=== PATIENT | female | born 1980 | race Caucasian/White ===

== ENCOUNTER → 2017-10-29 11:20 | Outpatient (CLI) | payer OTHER, SELFPAY | PROVIDERS: Family Provider Family Medicine; PCP Family Medicine; Visit Provider Obstetrics & Gynecology | DX: Z12.4 Encounter for screening for malignant neoplasm of cervix (principal) ==

== ENCOUNTER 2017-12-23 09:58 | Emergency (ER) | payer OTHER, SELFPAY ==
[2017-12-23 10:00] VITALS: BP 144/102; PULSE 115; RESP 17; TEMP 36.8; O2SAT 99; BMI 32.5
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
[2017-12-23] MEDS: Ibuprofen 600 MG Tablet PO (10:34)
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
[2017-12-23 11:41] VITALS: BP 129/84; PULSE 72; RESP 16; O2SAT 98
== END 2017-12-23 11:42 | disposition home or self-care (01) ==
PROVIDERS: Emergency Provider Emergency Medicine; Family Provider Family Medicine; PCP Family Medicine
DX: S16.1XXA Strain of muscle, fascia and tendon at neck level, initial encounter (principal); S80.02XA Contusion of left knee, initial encounter; Z72.0 Tobacco use; V57.0XXA Driver of pick-up truck or van injured in collision with fixed or stationary object in nontraffic accident, initial encounter; Y93.I9 Activity, other involving external motion; Y92.410 Unspecified street and highway as the place of occurrence of the external cause; Y99.8 Other external cause status
CPT/HCPCS: 73562; 99283

== ENCOUNTER → 2018-01-26 13:06 | Outpatient (CLI) | payer OTHER, SELFPAY ==
[2018-01-26 13:32] LABS: Erythrocyte Sedimentation Rate 17 mm/hr (0-20)
== END ==
PROVIDERS: Family Provider Family Medicine; PCP Family Medicine; Visit Provider Family Medicine
DX: R25.1 Tremor, unspecified (principal)
CPT/HCPCS: 83735; 85652

== ENCOUNTER 2018-03-25 17:52 | Emergency (ER) | payer OTHER, SELFPAY ==
[2018-03-25 17:53] VITALS: BP 143/91; PULSE 101; RESP 24; TEMP 36.7; O2SAT 100; BMI 33.6
--- NOTE | 2018-03-25 17:59 | EKG12_ITS ---
Test Reason : DIZZY/NEURO S/SX Blood Pressure : / mmHG Vent. Rate : 109 BPM Atrial Rate : 109 BPM P-R Int : 128 ms QRS Dur : 070 ms QT Int : 338 ms P-R-T Axes : 063 026 064 degrees QTc Int : 455 ms Sinus tachycardia Otherwise normal ECG Confirmed by NEREYDA OTERO ([id number]), design editor FARIDEH MOREL ([id number] on 03/29/2018 10:17:02 AM Referred By: ARIANA/CAT Confirmed By:NEREYDA OTERO
[2018-03-25 18:16] VITALS: BP 144/90; PULSE 106; RESP 18; O2SAT 99
[2018-03-25 18:22] VITALS: BP 146/101; PULSE 91; RESP 16; O2SAT 100
[2018-03-25 18:31] LABS: Bedside Glucose 93 mg/dL (70-110)
[2018-03-25 18:32] LABS: Absolute Lymphocyte Count 4.28 X10^3/ul (0.83-4.51); Absolute Neutrophil Count 4.2 X10^3/uL (2.0-7.7); Basophil# 0.02 X10^3/uL; Basophil% 0.2 % (0-1); Eosinophil# 0.11 X10^3/uL; Eosinophils% 1.2 % (0-5); Hematocrit 40.4 % (37-47); Hemoglobin 13.2 g/dl (12.0-15.0); Lymphocyte # 4.28 X10^3/ul (4.0); Lymphocyte % 45.4 % (19-41); Mean Corp Hgb Conc 32.7 g/gl (32-36); Mean Corpuscular Hgb 29.7 pg (27.0-32.0); Mean Corpuscular Volume 90.8 fL (81-99); Mean Platelet Vol. 9.3 fl (6.2-12.0); Monocyte# 0.79 X10^3/uL; Monocyte% 8.4 % (0-10); Neutrophil # 4.21 X10^3/uL (2.7-7.7); Neutrophil % 44.7 % (47-70); POSITIVE COUNT NO; POSITIVE DIFFERENTIAL NO; POSITIVE MORPHOLOGY NO; Platelet Count 415 K/mm3 (150-450); RBC Distribution Width CV 13.4 % (11.6-14.6); RBC Distribution Width SD 44.8 fl (35.1-43.9); Red Blood Count 4.45 M/mm3 (4.2-5.4); White Blood Count 9.4 K/mm3 (4.4-11.0)
[2018-03-25 18:42] LABS: International Normalized Ratio 0.9
[2018-03-25 18:45] LABS: Anion Gap 8 (5-15); BUN 11 mg/dL (7-18); BUN/Creat Ratio 15.6 RATIO (10-20); Calcium,Total 8.7 mg/dL (8.5-10.1); Chloride 109 mmol/L (98-107); EST Glomerular Filtration Rate 100 mL/min (>60); Est Glom Filt Rate - Afr Amer 121 mL/min (>60); Estimated Creatinine Clearance 84.65 ml/min; Glucose 90 mg/dL (74-106); Potassium 3.7 mmol/L (3.5-5.1); Sodium Level 139 mmol/L (136-145)
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
--- NOTE | 2018-03-25 18:58 | CT_ITS ---
Exam: CTA of the neck with contrast and 2-D reconstructions. HISTORY: Visual changes and diaphoresis. COMPARISON: None TECHNIQUE: Patient injected with 100 cc [id number]-370 IV. Axial images were followed with 2-D MIPS reconstructions reviewed at a separate workstation. FINDINGS: Normal appearance of the visualized aortic arch. Normal branching pattern of the great vessels. Common carotid arteries are normal for age. No significant calcified plaque of the carotid bulbs. No measurable stenosis at the carotid bulb or the origins of either ICA. Normal appearance of the cervical ICAs bilaterally to the base of the brain. Normal origin and appearance of the vertebral arteries. The left vertebral artery is dominant. Normal visualized basilar artery. Visualized soft tissues including the lung apices and visualized cervical spine show no gross acute abnormalities. CT/CTA Neck W/WO Contrast IMPRESSION: CTA of the neck vessels is normal for age. Electronically Signed: Anthony Banda MD at 20:12 EDT , Service support ,
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
--- NOTE | 2018-03-25 19:51 | ED.DCSUM_ITS ---
- ER Visit Summary Date of Service: 03/25/18 Chief Complaint: Ocular migraine History of Present Illness: The patient is a 37 F who states that when she woke this morning she had a pain in her right eye. She states she has a history of ocular migraines. She states that she saw the squiggly lines and occasionally around objects that were colorful in the eye. This made her vision blurry. She states is unusual for her to wake with the symptoms. She states usually she can take Motrin some Mountain Dew and lay in a dark room and it resolves this has not resolved. She did have an episode of vomiting when she came home from work early. The patient wears eyeglasses not had to have any adjustment of the prescription. History of vitamin D deficiency. She is a 1 pack a day smoker notes that she has been under more stress. She has pain on the right side of her neck going up towards her ear. The patient went to urgent care she was referred to the emergency department care. Physical Examination: Afebrile vital signs are stable Gen: Well-nourished well-developed Head: Normocephalic atraumatic Eyes: Perrl EOMI ENT: TMs clear no rhinorrhea moist mucous membranes Neck: Supple no lymphadenopathy no JVD nontender there are no carotid bruits. CVS: Regular rate rhythm no murmurs normal S1-S2 Respiratory: No distress clear to auscultation bilaterally chest nontender Abdomen: Soft nontender nondistended normal bowel sounds no masses Back: Nontender Extremity: Nontender no edema Skin: Normal color no rash Neuro: alert orientated ?3 CN II-XII intact normal strength sensation reflexes gait cerebellar Psych: Normal affect normal mood Test Results: Basic labs were negative. EKG sinus tachycardia at a rate of 109. Heart rate has come down into the 80s. CTA of the head and neck was negative for aneurysm or dissection. Emergency Department Course and Treatment: Patient was on oxygen for a period of time in her ED course. Upon reevaluation she states that her symptoms have resolved and she feels pretty good. She wonders if there is anything she can take prescription martin when she feels these headaches coming on. I am going to give her a trial of Maxalt. Follow-up with primary care return if worsening or concerns. Impression: 1. Ocular migraine This note was generated with [employer] dictation software. It may contain incorrect words, spelling, and punctuation that were not noted in review of the chart prior to signing ED Disposition - Plan for ED Patient: Disposition: Home or Assisted Living Chief Complaint: Neuro S/Sx Instructions: ED Headache Migraine Prescriptions: Rizatriptan Benzoate [Maxalt] 5 mg PO .X1 PRN #2 tab Referrals: Remington Duckworth MD [Primary Care Provider] - As Needed
[2018-03-25] MEDS: 0.9% Normal Saline 1,000 ML 50 ML IV (20:03)
[2018-03-25 20:21] VITALS: BP 146/82; PULSE 78; RESP 20
[2018-03-25 20:34] VITALS: BP 146/92; PULSE 75; RESP 14; O2SAT 96
== END 2018-03-25 20:35 | disposition home or self-care (01) ==
PROVIDERS: Emergency Provider Emergency Medicine; Family Provider Family Medicine; PCP Family Medicine
DX: G43.B0 Ophthalmoplegic migraine, not intractable (principal); F17.200 Nicotine dependence, unspecified, uncomplicated; E55.9 Vitamin D deficiency, unspecified
CPT/HCPCS: 70496; 70498; 71046; 80048; 82962; 85025; 85610; 85730; 93005; 99284; J7030; Q9967; A4216

== ENCOUNTER 2018-10-05 09:25 | Observation (INO) | payer OTHER, SELFPAY ==
[2018-10-05] VITALS (9 sets, daily range): BP systolic 121–145; BP diastolic 78–102; PULSE 66–102; RESP 14–18; TEMP 36.4–36.8; O2SAT 96–99; BMI 33.4; BMI 33.8; BMI 33.9
--- NOTE | 2018-10-05 09:37 | CT_ITS ---
STUDY: CT ABDOMEN AND PELVIS WITHOUT CONTRAST REASON FOR EXAM: Female, 38 years old. Mid abdominal pain, nausea, difficulty voiding. Prior appendectomy. RADIATION DOSAGE (If Supplied By Facility): CTDIvol = ( 14.30 ) mGy, DLP = ( 835.09 ) mGycm TECHNIQUE: Transaxial images were obtained from the dome of the diaphragm to the symphysis pubis without oral contrast, and without intravenous contrast. Sagittal and coronal images were reconstructed. Individualized dose optimization techniques were used for this CT. COMPARISON: CT abdomen and pelvis 05/16/2016 FINDINGS: Body wall soft tissues: No acute process. Osseous structures: No acute process. Inferior chest: No acute process. Hepatobiliary: Hepatomegaly, craniocaudal right liver 22 cm. No evidence of hepatic steatosis. Normal gallbladder and biliary tree. Tiny cystlike foci in the left liver, the largest measuring 6 mm, too small for definitive imaging characterization. Pancreas: No acute process. Spleen: Normal. Adrenal glands: Normal. Urogenital: Normal kidneys. Symmetric nephrograms. Normal collecting systems, ureters. There is mild circumferential thickening of the urinary bladder wall which may be associated with underdistention but there is slight stranding in the periserosal fat which may reflect the presence of occult cystitis/UTI. Correlate urinalysis. Unremarkable anteverted uterus. Small amount of right adnexal and cul-de-sac free fluid. Collapsing cannulated rim-enhancing cyst in the right ovary measuring 11 mm. Features suggest recent cyst rupture. Small follicle of the left ovary. Hyperdense cystlike focus along the posterior margin of the left ovary may represent a hemorrhagic cyst, measuring about 10 mm. Questionable tubular fluid-filled structure of the left adnexa. It is difficult to discern if this represents a loop of small bowel or dilated left fallopian tube. Follow-up pelvic and transvaginal ultrasound is recommended. Pelvic floor and sidewalls and retroperitoneum: No mass or adenopathy. Vasculature: No acute process. Stomach: No acute process. Small bowel and mesentery: No acute process. Large bowel: Appendectomy. Unremarkable large bowel and rectum. Free fluid or free air: No free air. Minimal pelvic free fluid as noted above. CT/Abdomen/Pelvis W IV Cont ONLY IMPRESSION: 1. Mild thickening of the wall the urinary bladder. Slight stranding in the periserosal fat along the anterior margin of the urinary bladder. These features may reflect underdistention, only a small amount of urine present. Correlate clinically for the possibility of occult UTI. 2. Small amount of right adnexal and pelvic free fluid associated with what appears to be a small collapsing cyst of the right ovary. Suspicious for recent cyst rupture. 3. Suspected hemorrhagic cyst of left ovary measuring about 10 mm. Questionable hydrosalpinx on the left. Ultrasound pelvic transabdominal and transvaginal is recommended. Electronically Signed: Vikas Gaspar MD at 12:56 EST Tel , Service support ,
[2018-10-05] MEDS: 0.9% Normal Saline 1,000 ML 1000 ML IV (10:46)
[2018-10-05] MEDS: fentaNYL 100 MCG/2 ML Ampul 50 MCG IV ×3 (10:47→13:34)
[2018-10-05] MEDS: Ondansetron 4 MG/2 ML Vial IV (10:48)
[2018-10-05 10:54] LABS: Bacteria 0 SEEN /hpf (None Seen); Mucous, Urine 0 SEEN /hpf (<or=2+); Red Blood Cells-Urine 0 SEEN /hpf (0-5); White Blood Cells 0 SEEN /hpf (0-5)
[2018-10-05 10:55] LABS: Absolute Lymphocyte Count 2.16 X10^3/ul (0.83-4.51); Absolute Neutrophil Count 6.2 X10^3/uL (2.0-7.7); Basophil# 0.01 X10^3/uL; Basophil% 0.1 % (0-1); Eosinophil# 0.06 X10^3/uL; Eosinophils% 0.6 % (0-5); Hematocrit 42.7 % (37-47); Hemoglobin 14.1 g/dl (12.0-15.0); Lymphocyte # 2.16 X10^3/ul (4.0); Lymphocyte % 22.7 % (19-41); Mean Corpuscular Hgb 29.3 pg (27.0-32.0); Mean Corpuscular Volume 88.8 fL (81-99); Mean Platelet Vol. 9.4 fl (6.2-12.0); Monocyte# 1.03 X10^3/uL; Monocyte% 10.8 % (0-10); Neutrophil # 6.21 X10^3/uL (2.7-7.7); Neutrophil % 65.5 % (47-70); Platelet Count 425 K/mm3 (150-450); RBC Distribution Width CV 13.6 % (11.6-14.6); Red Blood Count 4.81 M/mm3 (4.2-5.4); White Blood Count 9.5 K/mm3 (4.4-11.0)
[2018-10-05 10:56] LABS: POSITIVE COUNT NO; POSITIVE DIFFERENTIAL NO; POSITIVE MORPHOLOGY NO
[2018-10-05 10:59] LABS: Internal QC Validated? YES +Cl - CLEAR BKGD; Pregnancy, Urine Negative Negative
[2018-10-05 11:01] LABS: Color, Urine Yellow (Yellow); Glucose, Dipstick Normal (Normal); Ketone-Dipstick Negative (Negative); Leukocyte Esterase-Dipstick Negative /ul (Negative); Nitrite-Dipstick Negative (Negative); Occult Blood-Urine Negative /ul (Negative); Protein-Dipstick Negative (Negative); Urine Bilirubin Dipstick Negative (Negative); Urine Clarity Sl. Cloudy (Clear); Urine Urobilinogen Normal (Normal)
[2018-10-05 11:02] LABS: Squamous Epithelial Cells - UA 0-5 SEEN /hpf (5-10)
[2018-10-05 11:12] LABS: ALB/GLOB Ratio 1.1 RATIO (0.9-2.4); AST(SGOT) 23 U/L (15-37); Alanine Aminotransfer ALT/SGPT 47 U/L (13-56); Albumin, Serum 3.9 g/dL (3.2-5.0); Alkaline Phosphatase 79 U/L (45-117); Anion Gap 9 (5-15); BUN 7 mg/dL (7-18); BUN/Creat Ratio 11.9 RATIO (10-20); Calcium,Total 8.7 mg/dL (8.5-10.1); Chloride 107 mmol/L (98-107); Creatinine, Serum 0.59 mg/dL (0.55-1.02); EST Glomerular Filtration Rate 123 mL/min (>60); Est Glom Filt Rate - Afr Amer 149 mL/min (>60); Estimated Creatinine Clearance 99.47 ml/min; Globulin 3.4 g/dL (2.2-4.2); Glucose 109 mg/dL (74-106); Lipase 66 U/L (73-393); Potassium 3.8 mmol/L (3.5-5.1); Protein, Total 7.3 g/dL (6.4-8.2); Sodium Level 139 mmol/L (136-145)
--- NOTE | 2018-10-05 13:34 | ED.RN ---
DR LUCY OWEN
--- NOTE | 2018-10-05 13:45 | NURSING ---
MED SURG INTRACTABLE ABD PAIN STEPHANIE
--- NOTE | 2018-10-05 13:51 | ED.VISSUMM ---
- ER Visit Summary Date of Service: 10/05/18 Chief Complaint: Abdominal pain History of Present Illness: The patient is a 38 F with abdominal pain starting yesterday. It feels sharp and it starts in the epigastric region and radiates to the right upper quadrant. It is 10 out of 10. She has had some nausea but no other symptoms. She never had this pain before. Nothing seems to make it better or worse. Denies fever or jaundice. 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 Physical Examination: Afebrile and vital signs unremarkable except for heart rate of 102. Appears very uncomfortable. Heart regular. Lungs clear. Abdomen is tender diffusely, including her lower abdomen. No guarding or rebound. CVA is nontender. Skin appears normal. Test Results: CBC normal. Metabolic panel and lipase unremarkable. Urinalysis normal. testing negative. Although the patient initially complained of upper abdominal pain and right upper quadrant pain, she was tender all over, and so a CT was ordered. This showed a thickened bladder as well as pelvic fluid. She has a right ovarian cyst and hydrosalpinx. Ultrasound was recommended. Emergency Department Course and Treatment: Patient received Zofran, fluids, and fentanyl. She had minimal improvement of her pain. She did require 2 additional doses of fentanyl. She is tearful and appears very uncomfortable. Her workup and vital signs were reassuring. But the patient is having intractable pain, requiring multiple rounds of IV fentanyl. Her CT showed findings as above. Ultrasound was not available today. Patient will not be able to go home because of her intractable pain. I spoke with Dr. Jaimes as the patient will likely need admission either way. She said that the ultrasound could be done as an inpatient. She advised checking GC and Chlamydia testing. I ordered the urine testing. The patient denies any discharge or symptoms. Plan was discussed with the patient. She will be admitted for pain control and further specialty care. Treatment Plan: As above Disposition: Admission Impression: 1. Intractable abdominal pain This note was generated with [employer] dictation software. It may contain incorrect words, spelling, and punctuation that were not noted in review of the chart prior to signing ED Disposition - Plan for ED Patient: Chief Complaint: Abd Pain Referrals: Remington Duckworth MD [Primary Care Provider] -
--- NOTE | 2018-10-05 13:55 | ED.DCSUM_ITS ---
- ER Visit Summary Date of Service: 10/05/18 Chief Complaint: Abdominal pain History of Present Illness: The patient is a 38 F with abdominal pain starting yesterday. It feels sharp and it starts in the epigastric region and radiates to the right upper quadrant. It is 10 out of 10. She has had some nausea but no other symptoms. She never had this pain before. Nothing seems to make it better or worse. Denies fever or jaundice. Denies urinary and [employer]ENT symptoms. Physical Examination: Afebrile and vital signs unremarkable except for heart rate of 102. Appears very uncomfortable. Heart regular. Lungs clear. Abdomen is tender diffusely, including her lower abdomen. No guarding or rebound. CVA is nontender. Skin appears normal. Test Results: CBC normal. Metabolic panel and lipase unremarkable. Urinalysis normal. testing negative. Although the patient initially complained of upper abdominal pain and right upper quadrant pain, she was tender all over, and so a CT was ordered. This showed a thickened bladder as well as pelvic fluid. She has a right ovarian cyst and hydrosalpinx. Ultrasound was recommended. Emergency Department Course and Treatment: Patient received Zofran, fluids, and fentanyl. She had minimal improvement of her pain. She did require 2 additional doses of fentanyl. She is tearful and appears very uncomfortable. Her workup and vital signs were reassuring. But the patient is having intractable pain, requiring multiple rounds of IV fentanyl. Her CT showed findings as above. Ultrasound was not available today. Patient will not be able to go home because of her intractable pain. I spoke with Dr. Jaimes as the patient will likely need admission either way. She said that the ultrasound could be done as an inpatient. She advised checking GC and Chlamydia testing. I ordered the urine testing. The patient denies any discharge or symptoms. Plan was discussed with the patient. She will be admitted for pain control and further specialty care. Treatment Plan: As above Disposition: Admission Impression: 1. Intractable abdominal pain This note was generated with [employer] dictation software. It may contain incorrect words, spelling, and punctuation that were not noted in review of the chart prior to signing ED Disposition - Plan for ED Patient: Chief Complaint: Abd Pain Referrals: Remington Duckworth MD [Primary Care Provider] -
[2018-10-05 15:40] LABS: Chlamydia Trachomatis by PCR Negative (Negative); Neisserai gonorrhoeae by PCR Negative (Negative); Probe Check PASS; Sample Adequacy Control PASS; Specimen Processing Control PASS
[2018-10-05] MEDS: 0.9% Normal Saline 1,000 ML 100 ML IV (15:47)
[2018-10-05] MEDS: HYDROmorphone 1 MG/ML Syringe IV (15:47)
[2018-10-05] MEDS: Ketorolac 30 MG/ML Syringe IV (15:48)
[2018-10-05] MEDS: Magnesium Hydroxide 30 ML UDC PO (16:08)
--- NOTE | 2018-10-05 17:33 | PCM.HPOB.BLA ---
History and Physical Date of Admission: 10/05/18 - abdominal pain HISTORY OF PRESENT ILLNESS: On 10/05/2018, Sarina Guerra, a 38 year old female 3 0 0 0 3, presented to the emergency department with CC of abdominal pain starting yesterday, described as sharp . It starts in the epigastric region, radiates to the right upper quadrant, then all across the abdomen down to the pelvis. It was initially 10/10 on the pain scale. She states had some nausea. No diarrhea, fever, chills. She has not had a bowel movement since Sat (3 d ago) and not passing flatus. She is now burping. Denies anything like this in the past. No hx of stomach problems or reflux. She denies taking NSAIDs. Nothing but pain med just given seems to make it better. She is concerned about the CT report of her bladder. -- abdominal pain which began yesterday, but maybe off and on starting a few weeks ago. Sarina claims it has been present continuous. It occurs cramping. It is located in the RUQ, and epigastrium radiating to lower abdomen, pelvis. Sarina characterizes the quality of the abdominal pain as cramping and sharp. Severity is initially 10/10. Now much better controlled after pain med given. It is aggravated by nothing and relieved by medication. An associated sign and symptom is nausea. Last BM 3 d ago. Sarina received Zofran, fluids, and three doses of fentanyl in the emergency department. CT of pelvis and abdomen: -- There is mild circumferential thickening of the urinary bladder wall which may be associated with underdistention but there is slight stranding in the periserosal fat which may reflect the presence of occult cystitis/UTI. Correlate urinalysis. UA NEGATIVE. -- Unremarkable anteverted uterus. Small amount of right adnexal and cul-de-sac free fluid. Collapsing cannulated rim-enhancing cyst R ovary 11 mm Features suggest recent cyst rupture. L ovary, 10 mm follicle. Questionable tubular fluid-filled structure of the left adnexa.-- a loop of small bowel or dilated L fallopian tube. WILL GET PELVIC SONO. LABS: CBC, metabolic profile, Lipase WNL. UA normal test neg. GC and chlamydia sent on urine. ALLERGIES: Dimetapp, Itching, Latex, Rash, metals, Rash, Codeine, Itching, non-specific MEDICATIONS HISTORY: Current medications prescribed by our practice are: 1.None. REVIEW OF SYSTEMS: GENERAL - Denies fever, or chills SKIN - Denies skin changes EYES - Denies visual changes EARS - Denies difficulty hearing NOSE - Denies nasal congestion or bleeding MOUTH - Denies sore throat or difficulty swallowing NECK - Denies pain or swelling RESPIRATORY - Denies shortness of breath or wheezing CARDIOVASCULAR - Denies palpitations or chest pain GASTROINTESTINAL - denies any history of reflux. No diarrhea. States no BM x 3 d. No flatus, just starting to burp again Everything on abdomen feels swollen, distended. GENITOURINARY - Denies dysuria, frequency of urination, incontinence of urine MUSCULOSKELETAL - Denies joint or muscle pain NEUROLOGICAL - Denies localized numbness or weakness PSYCHIATRIC - Denies depression or anxiety ENDOCRINE - Denies heat or cold intolerance, weight loss or gain HEMATO-IMMUNOLOGIC - Denies excessive bleeding with cuts PAST HISTORY: Breast/Ovarian/Colon Cancers - Denies Infections - Chicken pox and HPV Illnesses - IBS Accidents - no injuries of consequence History of Abnormal PAPS - first noted 2-5 years ago-- YES SURGICAL HISTORY: 1. 05/09/1997 T and A 2. 11/21/[address] Hunter 3. 09/11/2003 Laparoscopy Navdeep Ansari M.D. MENSTRUAL HISTORY: LMP Known?- Yes, Regularity - Irregular, LMP - 09/25/18, Age Onset Menarche - 14 PAST PREGNANCIES: Total Pregnancies - 3; Full Term Pregnancies - 3; Premature - 0; Abortions, Induced - 0; Abortions, Spontaneous - 0; Ectopics - 0; Multiple Births - 0; Living Children - 3 FAMILY HISTORY: Father - FH: Diabetes mellitus type 1; Father - Ischemic heart disease; Mother - Ischemic heart disease; MaternalGrandparent - Ischemic heart disease; SOCIAL HISTORY: Alcohol Use - drinks occasionally Smoking - 1/2 pack/day--advised to quit Diet - balanced Diet Lifestyle - moderate stress lifestyle and Exercise - active and walking Seat Belt Use - always Employer - [employer] Job Description - [employer] Illicit Drug Use - denies use of street drugs Sexual Activity - Residence - owns a home and lives with Place of - [place] Hours Worked - 40 hours per week Spouse-Sig Other Name - Marcio Varun Mari Spouse-Sig Other Occupation - Manuela Kaminski Spouse-Sig Other Phone No - [phone] Children Name(s) - ' DIANE, '04 Ankita (marcelina)Keila-JMW,[id number] Control - Vasectomy PHYSICAL EXAMINATION BP- 145/98 while in pain Pulse- 66 Resp- 18 99% pulse ox on RA Weight- 0.00 lbs Height- 0.00 inch CONSTITUTIONAL - NAD, well nourished, and well developed HEENT - Normocephalic, PERRLA, EOMI NECK - no nuchal rigidity and no tracheal deviation BREAST - deferred ABDOMEN - minimally tender throughout No voluntary guarding. No rebound. Nonsurgical abdomen NEUROLOGICAL - Cranial nerves II-XII grossly intact PSYCHIATRIC - A and O to time, place, person, mood and affect ASSESSMENT: 1. Upper Abdominal Pain, Unspecified 2. Nausea PLAN BY DIAGNOSIS: 1. Nausea, Upper Abdominal Pain and Unspecified Reviewed history. labs and CT findings. Advised pt not likely her pain is due to her minimal fluid in pelvis, or small follicles noted. ? L hydrosalpinx vs loop of bowel. Abdomen nonsurgical. suspect bowel etiology with pain in epigastrium to RUQ and radiation to pelvis over entire abdomen. Possibly related to constipation. LFTs wnl. CT no abdominal pathology. Admit for IV fluids, pain control Antiemetics. MOM, Richi for bowel function. Plan for pelvic sono on 10/06/18.
[2018-10-05] MEDS: Famotidine 20 MG Tablet PO (21:53)
[2018-10-05] MEDS: Metoclopramide 10 MG/2 ML Vial 5 MG IV (21:53)
[2018-10-05] MEDS: 0.9% NaCl Peripheral Flush Adult/Peds IV (21:54)
[2018-10-06] MEDS: 0.9% Normal Saline 1,000 ML 100 ML IV (01:24)
[2018-10-06 01:38] VITALS: BP 114/72; PULSE 75; RESP 16; TEMP 36.8; O2SAT 98
[2018-10-06] MEDS: Metoclopramide 10 MG/2 ML Vial 5 MG IV ×2 (05:26→14:13)
[2018-10-06] MEDS: Ketorolac 30 MG/ML Syringe IV (05:26)
[2018-10-06] MEDS: 0.9% NaCl Peripheral Flush Adult/Peds IV ×2 (05:26→11:31)
[2018-10-06 06:22] LABS: Absolute Lymphocyte Count 3.26 X10^3/ul (0.83-4.51); Absolute Neutrophil Count 3.6 X10^3/uL (2.0-7.7); Basophil# 0.02 X10^3/uL; Basophil% 0.3 % (0-1); Eosinophil# 0.07 X10^3/uL; Eosinophils% 0.9 % (0-5); Hematocrit 35.4 % (37-47); Hemoglobin 11.5 g/dl (12.0-15.0); Lymphocyte # 3.26 X10^3/ul (4.0); Lymphocyte % 42.2 % (19-41); Mean Corp Hgb Conc 32.5 g/gl (32-36); Mean Corpuscular Hgb 29.4 pg (27.0-32.0); Mean Corpuscular Volume 90.5 fL (81-99); Mean Platelet Vol. 9.1 fl (6.2-12.0); Monocyte% 10.3 % (0-10); Neutrophil # 3.57 X10^3/uL (2.7-7.7); Neutrophil % 46.2 % (47-70); Platelet Count 340 K/mm3 (150-450); RBC Distribution Width CV 13.9 % (11.6-14.6); RBC Distribution Width SD 45.7 fl (35.1-43.9); Red Blood Count 3.91 M/mm3 (4.2-5.4); White Blood Count 7.7 K/mm3 (4.4-11.0)
[2018-10-06 06:26] LABS: POSITIVE COUNT NO; POSITIVE DIFFERENTIAL NO; POSITIVE MORPHOLOGY NO
[2018-10-06 06:35] LABS: Anion Gap 9 (5-15); BUN 7 mg/dL (7-18); BUN/Creat Ratio 13.6 RATIO (10-20); Calcium,Total 7.7 mg/dL (8.5-10.1); Chloride 112 mmol/L (98-107); Creatinine, Serum 0.51 mg/dL (0.55-1.02); EST Glomerular Filtration Rate 144 mL/min (>60); Est Glom Filt Rate - Afr Amer 174 mL/min (>60); Estimated Creatinine Clearance 115.07 ml/min; Glucose 93 mg/dL (74-106); Sodium Level 143 mmol/L (136-145)
--- NOTE | 2018-10-06 08:00 | US_ITS ---
STUDY: ULTRASOUND OF THE FEMALE PELVIS - COMPLETE CLINICAL: Female, 38 years old. Severe mid to right pelvic pain x 3 days. LMP: September 23, 2018. TECHNIQUE: Transabdominal and Transvaginal. Despite a distended urinary bladder, detail was limited on initial scanning, so endovaginal imaging was also employed. TECHNICAL QUALITY: Adequate. COMPARISON: CT abdomen and pelvis October 05, 2018. FINDINGS: The uterus is anteverted and is in a midline position. The uterus measures 8.9 x 4.9 x 4.1 cm. Normal uterine cervix. The endometrium measures 7 mm in thickness, and is hyperechoic. There is no demonstrated endometrial mass. There is no demonstrated myometrial mass. I.U.D. - The patient does not have an I.U.D. The right ovary is visualized. The right ovary measures 3.3 x 3.7 x 1.7 cm. There are a few small follicles of the right ovary without a dominant cyst. 2.2 x 2.2 x 1.3 cm cystic structure with a thick irregular rim suggests an involuting dominant follicle. There is normal arterial and normal venous vascularity. The left ovary is visualized. The left ovary measures 2.0 x 1.7 x 1.7 cm. There are several small follicles of the left ovary without a dominant cyst. A 3 mm calcification is seen at the margin of the ovary. There is no visualized left adnexal mass or complex lesion. There is normal arterial and normal venous vascularity. There is small volume free fluid in the cul-de-sac. Polycystic ovary disease: No. US/Pelvic (Non ) IMPRESSION: 1. Probable involuting 2.2 cm dominant follicle in the right ovary. 2. Unremarkable left ovary. There is no demonstrated hydrosalpinx or pyosalpinx. 3. Normal anteverted uterus with normal endometrial thickness. Electronically Signed: Diego Howard MD at 9:50 EST , Service support ,
--- NOTE | 2018-10-06 08:35 | PCM.PROGNOTE ---
Subjective: Abdominal pain feels much better today. Still feeling bloated, distended and overall tender, but no other Dilaudid or pain med needed. MOM last night No BM. Objective: Sitting up in bed, multiple visitors in room. - Physical Exam General: Alert, Oriented x3, Cooperative, No apparent distress HEENT: Atraumatic Neck: Supple Psych/Mental Status: Normal Affect Vital Signs Temp Pulse Resp BP Pulse Ox 98.3 F 75 16 114/72 98 10/06/18 01:38 10/06/18 01:38 10/06/18 01:38 10/06/18 01:38 10/06/18 01:38 Oxygen Delivery Method Room Air Weight: 81.3 kg Body Mass Index (BMI) 33.8 Finger Stick Blood Glucose 93 Intake and Output for Last 24 Hours 10/04/18 10/05/18 10/06/18 23:59 23:59 23:59 Intake Total 439 / 439 1195 / 1195 Output Total 700 / 700 Balance 439 / 439 495 / 495 Laboratory Tests Past 24 Hrs 10/05/18 10/05/18 10/05/18 10:40 10:40 10:50 WBC 9.5 RBC 4.81 Hgb 14.1 Hct 42.7 MCV 88.8 MCH 29.3 MCHC 33.0 RDW 13.6 RDW Differential 44.0 H Plt Count 425 MPV 9.4 Immature Gran % (Auto) 0.300 Neut % (Auto) 65.5 Lymph % (Auto) 22.7 [place] % (Auto) 10.8 H Eos % (Auto) 0.6 Baso % (Auto) 0.1 Absolute Neuts (auto) 6.2 Absolute Lymphs (auto) 2.16 Total Counted Not Reportable Sodium 139 Potassium 3.8 Chloride 107 Carbon Dioxide 23.0 Anion Gap 9 BUN 7 Creatinine 0.59 Estim Creat Clear Calc 99.47 Est GFR (MDRD) Af Amer 149 Est GFR (MDRD) Non-Af 123 BUN/Creatinine Ratio 11.9 Glucose 109 H Calcium 8.7 Total Bilirubin 0.40 AST 23 ALT 47 Alkaline Phosphatase 79 Total Protein 7.3 Albumin 3.9 Globulin 3.4 Albumin/Globulin Ratio 1.1 Lipase 66 L Urine Color Urine Clarity Urine pH Ur Specific [place] Urine Protein Urine Glucose (UA) Urine Ketones Urine Occult Blood Urine Nitrite Urine Bilirubin Urine Urobilinogen Ur Leukocyte Esterase Urine RBC Urine WBC Ur Squamous Epith Cells Urine Bacteria Urine Mucus Urine Test Negative Chlam trachomat DNA PCR N.gonorrhoeae DNA (PCR) 10/05/18 10/05/18 10/06/18 10:50 10:50 05:44 WBC 7.7 RBC 3.91 L Hgb 11.5 L Hct 35.4 L MCV 90.5 MCH 29.4 MCHC 32.5 RDW 13.9 RDW Differential 45.7 H Plt Count 340 MPV 9.1 Immature Gran % (Auto) 0.100 Neut % (Auto) 46.2 L Lymph % (Auto) 42.2 H [place] % (Auto) 10.3 H Eos % (Auto) 0.9 Baso % (Auto) 0.3 Absolute Neuts (auto) 3.6 Absolute Lymphs (auto) 3.26 Total Counted Not Reportable Sodium Potassium Chloride Carbon Dioxide Anion Gap BUN Creatinine Estim Creat Clear Calc Est GFR (MDRD) Af Amer Est GFR (MDRD) Non-Af BUN/Creatinine Ratio Glucose Calcium Total Bilirubin AST ALT Alkaline Phosphatase Total Protein Albumin Globulin Albumin/Globulin Ratio Lipase Urine Color Yellow Urine Clarity Sl. Cloudy Urine pH 6.0 Ur Specific [place] 1.010 Urine Protein Negative Urine Glucose (UA) Normal Urine Ketones Negative Urine Occult Blood Negative Urine Nitrite Negative Urine Bilirubin Negative Urine Urobilinogen Normal Ur Leukocyte Esterase Negative Urine RBC 0 SEEN Urine WBC 0 SEEN Ur Squamous Epith Cells 0-5 SEEN Urine Bacteria 0 SEEN Urine Mucus 0 SEEN Urine Test Chlam trachomat DNA PCR Negative N.gonorrhoeae DNA (PCR) Negative 10/06/18 05:44 WBC RBC Hgb Hct MCV MCH MCHC RDW RDW Differential Plt Count MPV Immature Gran % (Auto) Neut % (Auto) Lymph % (Auto) [place] % (Auto) Eos % (Auto) Baso % (Auto) Absolute Neuts (auto) Absolute Lymphs (auto) Total Counted Sodium 143 Potassium 4.0 Chloride 112 H Carbon Dioxide 22.0 Anion Gap 9 BUN 7 Creatinine 0.51 L Estim Creat Clear Calc 115.07 Est GFR (MDRD) Af Amer 174 Est GFR (MDRD) Non-Af 144 BUN/Creatinine Ratio 13.6 Glucose 93 Calcium 7.7 L Total Bilirubin AST ALT Alkaline Phosphatase Total Protein Albumin Globulin Albumin/Globulin Ratio Lipase Urine Color Urine Clarity Urine pH Ur Specific [place] Urine Protein Urine Glucose (UA) Urine Ketones Urine Occult Blood Urine Nitrite Urine Bilirubin Urine Urobilinogen Ur Leukocyte Esterase Urine RBC Urine WBC Ur Squamous Epith Cells Urine Bacteria Urine Mucus Urine Test Chlam trachomat DNA PCR N.gonorrhoeae DNA (PCR) Medical Necessity - Tobacco Use Smoking Status: Current every day smoker Tobacco Use: Cigarettes Assessment/Plan Nausea, Upper Abdominal Pain and Unspecified Sx improved. No further narcotic pain meds needed. WBC wnl, but inc lymphocytes and monocytes and advised of this. Likely pain due to enteritis. Diet as tolerated. Constipation. MOM bid, Reglan for bowel function. Possible hydrosalpinx Plan for pelvic sono today prior to dischg Likely dischg home later today.
[2018-10-06] MEDS: Famotidine 20 MG Tablet PO (08:57)
[2018-10-06] MEDS: Magnesium Hydroxide 30 ML UDC PO (08:58)
[2018-10-06 09:00] VITALS: BP 123/76; PULSE 75; RESP 16; TEMP 36.8; O2SAT 98
--- NOTE | 2018-10-06 10:17 | PCM.DC ---
- Discharge Diagnoses Current Active Problems: abdominal pain, Nausea. Constipation You will use the following diet at home:: No restrictions Discharge Activity: Return to Normal Activity - as you are comfortable, and symptoms improve. Return to work on:: 10/07/18 May resume sexual activity in: No Restrictions - when comfortable Weight Bearing Status: Weight bearing as tolerated Call your doctor if you observe: Fever of 101 or Higher, Inability to have a bowel movement, Uncontrolled pain Allergies/Adverse Reactions: Allergies brompheniramine [From Dimetapp (brompheniramine-PPA)] Allergy (Verified 03/25/18 17:56) HALLUCINATIONS codeine Allergy (Verified 03/25/18 17:56) Itching latex Allergy (Verified 03/25/18 17:56) Hives phenylpropanolamine [From Dimetapp (brompheniramine-PPA)] Allergy (Verified 03/25/18 17:56) HALLUCINATIONS METALS Allergy (Uncoded 03/25/18 17:56) Itching Medications to take at Discharge Ergocalciferol [Vitamin D] 50,000 unit PO TU 03/25/18 Acetaminophen [Tylenol] 500 - 1,000 mg PO Q8H PRN PRN tablet 10/06/18 Docusate Sodium [Colace] 100 mg PO BID #30 capsule 10/06/18 Famotidine [Pepcid] 20 mg PO BID #30 tablet 10/06/18 Mag Hydrox/Al Hydrox/Simeth [Mylanta II] 30 ml PO Q6H PRN PRN udc 10/06/18 Ondansetron HCl [Zofran] 4 mg PO Q6H PRN PRN #10 tablet 10/06/18 The following prescriptions were given: Ondansetron HCl [Zofran] 4 mg PO Q6H PRN PRN #10 tablet PRN Reason: Nausea Docusate Sodium [Colace] 100 mg PO BID #30 capsule Famotidine [Pepcid] 20 mg PO BID #30 tablet Primary Care Physician: Remington Duckworth MD [Primary Care Provider] - Test Results: Test results from this visit will be discussed in further detail at your follow-up appointment, if applicable. Please Follow Up With: Navdeep Ansari MD - [phone] When: as scheduled, or within two weeks if you do not have an appointment.
--- NOTE | 2018-10-06 10:22 | DCINST_ITS ---
- Discharge Diagnoses Current Active Problems: abdominal pain, Nausea. Constipation You will use the following diet at home:: No restrictions Discharge Activity: Return to Normal Activity - as you are comfortable, and symptoms improve. Return to work on:: 10/07/18 May resume sexual activity in: No Restrictions - when comfortable Weight Bearing Status: Weight bearing as tolerated Call your doctor if you observe: Fever of 101 or Higher, Inability to have a bowel movement, Uncontrolled pain Allergies/Adverse Reactions: Allergies brompheniramine [From Dimetapp (brompheniramine-PPA)] Allergy (Verified 03/25/18 17:56) HALLUCINATIONS codeine Allergy (Verified 03/25/18 17:56) Itching latex Allergy (Verified 03/25/18 17:56) Hives phenylpropanolamine [From Dimetapp (brompheniramine-PPA)] Allergy (Verified 03/25/18 17:56) HALLUCINATIONS METALS Allergy (Uncoded 03/25/18 17:56) Itching Medications to take at Discharge Ergocalciferol [Vitamin D] 50,000 unit PO TU 03/25/18 Acetaminophen [Tylenol] 500 - 1,000 mg PO Q8H PRN PRN tablet 10/06/18 Docusate Sodium [Colace] 100 mg PO BID #30 capsule 10/06/18 Famotidine [Pepcid] 20 mg PO BID #30 tablet 10/06/18 Mag Hydrox/Al Hydrox/Simeth [Mylanta II] 30 ml PO Q6H PRN PRN udc 10/06/18 Ondansetron HCl [Zofran] 4 mg PO Q6H PRN PRN #10 tablet 10/06/18 The following prescriptions were given: Ondansetron HCl [Zofran] 4 mg PO Q6H PRN PRN #10 tablet PRN Reason: Nausea Docusate Sodium [Colace] 100 mg PO BID #30 capsule Famotidine [Pepcid] 20 mg PO BID #30 tablet Primary Care Physician: Remington Duckworth MD [Primary Care Provider] - Test Results: Test results from this visit will be discussed in further detail at your follow- up appointment, if applicable. Please Follow Up With: Navdeep Ansari MD - [phone] When: as scheduled, or within two weeks if you do not have an appointment.
--- NOTE | 2018-10-06 14:03 | PCM.PN.BLA ---
Progress Note less abdominal pain. + flatus. States foul smelling diarrhea now Ultrasound to be done at approx 3 pm Still a little painful. Asking for small amt of pain med prn for home A/P: Abdominal pain. Likely enteritis, now with diarrhea. SONO today for pelvis. Then home. Dischg meds and instructions given. Will call with sono results. No need to take any stool softener, advised not to take with diarrhea.
--- NOTE | 2018-10-06 14:33 | CHAPLAIN ---
Type of Pastoral Visit _x__ Initial Visit ___ Follow-up Visit ___ On-call Visit ___ General Patient Visit ___ Spiritual Assessment ___ Family Conference ___ Bereavement ___ Rapid Response ___ Code Blue ___ Other (describe below) Pastoral Care Referral From _x__ Patient ___ Family ___ Nurse ___ Physician ___ Space Systems Operations Craftsman ___ Harbormaster ___ Other (describe below) Sacrament/Intervention _x__ Active listening ___ Anointing ___ Mormon ___ Bereavement ___ Communion ___ Olga exploration ___ ___ Life review _x__ Prayer ___ Reconciliation ___ Sacrament of Sick _x__ Supportive presence ___ Wedding ___ Other (describe below) Pastoral Comments
--- NOTE | 2018-10-06 15:19 | US_ITS ---
STUDY: ULTRASOUND OF THE FEMALE PELVIS - COMPLETE CLINICAL: Female, 38 years old. Severe mid to right pelvic pain x 3 days. LMP: September 23, 2018. TECHNIQUE: Transabdominal and Transvaginal. Despite a distended urinary bladder, detail was limited on initial scanning, so endovaginal imaging was also employed. TECHNICAL QUALITY: Adequate. COMPARISON: CT abdomen and pelvis October 05, 2018. FINDINGS: The uterus is anteverted and is in a midline position. The uterus measures 8.9 x 4.9 x 4.1 cm. Normal uterine cervix. The endometrium measures 7 mm in thickness, and is hyperechoic. There is no demonstrated endometrial mass. There is no demonstrated myometrial mass. I.U.D. - The patient does not have an I.U.D. The right ovary is visualized. The right ovary measures 3.3 x 3.7 x 1.7 cm. There are a few small follicles of the right ovary without a dominant cyst. 2.2 x 2.2 x 1.3 cm cystic structure with a thick irregular rim suggests an involuting dominant follicle. There is normal arterial and normal venous vascularity. The left ovary is visualized. The left ovary measures 2.0 x 1.7 x 1.7 cm. There are several small follicles of the left ovary without a dominant cyst. A 3 mm calcification is seen at the margin of the ovary. There is no visualized left adnexal mass or complex lesion. There is normal arterial and normal venous vascularity. There is small volume free fluid in the cul-de-sac. Polycystic ovary disease: No. US/Transvaginal Non- IMPRESSION: 1. Probable involuting 2.2 cm dominant follicle in the right ovary. 2. Unremarkable left ovary. There is no demonstrated hydrosalpinx or pyosalpinx. 3. Normal anteverted uterus with normal endometrial thickness. Electronically Signed: Diego Howard MD at 9:50 EST , Service support ,
[2018-10-06 16:05] VITALS: BP 130/88; PULSE 79; RESP 18; TEMP 36.6; O2SAT 100
--- NOTE | 2018-10-07 14:25 | PCM.DC.SUM ---
Discharge Date and Diagnosis Date of Admission: 10/05/18 - abdominal pain Date of Discharge: 10/06/18 Hospital Course and Treatment Summary of Care Provided: The patient is a 38 year old Female with abdominal pain (epigastric to RUQ and radiating through entire abdomen), also ? finding on CT of either a hydrosalpinx or loop of bowel Admitted for observation overnight due to abdominal pain unrelieved by fentanyl (short relief only). CBC wnl. AFEB during her hospital stay. she required a dose of Dilaudid 1 mg and one dose of Toradol for pain relief in hospital. Diarrhea developed during her hospital observation. Pelvic sono done later afternoon and she was sent home in stable condition no longer requiring pain medication. DX enteritis. Abdominal pain due to enteritis, resolving - Physical Exam Vital Signs Temp Pulse Resp BP Pulse Ox 97.9 F 79 18 130/88 H 100 10/06/18 16:05 10/06/18 16:05 10/06/18 16:05 10/06/18 16:05 10/06/18 16:05 Oxygen Delivery Method Room Air Weight: 81.3 kg Body Mass Index (BMI) 33.8 Finger Stick Blood Glucose 93 Intake and Output for Last 24 Hours 10/05/18 10/06/18 10/07/18 23:59 23:59 23:59 Intake Total 439 / 439 2066 / 2066 Output Total 1100 / 1100 Balance 439 / 439 966 / 966 Discharge Activity: Return to Normal Activity - as you are comfortable, and symptoms improve. Return to work on:: 10/07/18 May resume sexual activity in: No Restrictions - when comfortable Weight Bearing Status: Weight bearing as tolerated Call your doctor if you observe: Fever of 101 or Higher, Inability to have a bowel movement, Uncontrolled pain Home Medications: Medications to take at Discharge Ergocalciferol [Vitamin D] 50,000 unit PO TU 03/25/18 Acetaminophen [Tylenol] 500 - 1,000 mg PO Q8H PRN PRN tablet 10/06/18 Docusate Sodium [Colace] 100 mg PO BID #30 capsule 10/06/18 Famotidine [Pepcid] 20 mg PO BID #30 tablet 10/06/18 Mag Hydrox/Al Hydrox/Simeth [Mylanta II] 30 ml PO Q6H PRN PRN udc 10/06/18 Ondansetron HCl [Zofran] 4 mg PO Q6H PRN PRN #10 tablet 10/06/18 Following Prescrptions Were Given to Patient: Ondansetron HCl [Zofran] 4 mg PO Q6H PRN PRN #10 tablet PRN Reason: Nausea Docusate Sodium [Colace] 100 mg PO BID #30 capsule Famotidine [Pepcid] 20 mg PO BID #30 tablet Primary Care Physician: Remington Duckworth MD [Primary Care Provider] - Please Follow Up With: Navdeep Ansari MD - [phone] When: as scheduled, or within two weeks if you do not have an appointment. Medical Necessity - Tobacco Use Smoking Status: Current every day smoker Tobacco Use: Cigarettes Meaningful Use Info Meaningful Use Diagnoses (Choose all that apply): None applicable
== END 2018-10-06 16:19 | disposition home or self-care (01) ==
LOC: ED 10:17 → MS3 14:56
PROVIDERS: Admitting Provider Obstetrics & Gynecology; Emergency Provider Emergency Medicine; Family Provider Family Medicine; PCP Family Medicine; Visit Provider Obstetrics & Gynecology
DX: K52.9 Noninfective gastroenteritis and colitis, unspecified (principal); F17.210 Nicotine dependence, cigarettes, uncomplicated; N83.202 Unspecified ovarian cyst, left side
CPT/HCPCS: 36415; 74177; 76830; 76856; 80048; 80053; 81001; 81025; 83690; 85025; 87491; 87591; 93976; 96361; 96374; 96375; 96376; 99218; 99282; 99406; J7030; Q9967; A4216; G0378; J2405

== ENCOUNTER → 2018-12-30 15:59 | Outpatient (CLI) | payer OTHER, SELFPAY ==
[2018-10-05 15:18] VITALS: BMI 33.8
--- NOTE | 2018-12-30 | CER_PTH ---
PATIENT: PRAVEEN VIERA LOC: [facility] U#:[id number] AGE/SX: 45/F ROOM: RE12/30/[address]: Dr. Navdeep Ansari MD : 1980 BED: DIS: SPEC #: [id number] RECD: 12/30/18 15:57 STATUS: RAFAEL BANKSYue #: [id number] CHIN: 12/30/18 00:[address]: Navdeep Ansari DEPT: SURGICAL PATHOLOGY RECD BY: Rogerio Burgess ENTERED: 12/31/18 09:05 SP TYPE: CERV OTHR DR: Dr. Lux Duckworth MD Tissues: Uterine cervix, NOS Procedures: Surgery Specimen Level IV HEADER OPERATION: ECC PRE-OP DIAGNOSIS: N93.0 TISSUE SUBMITTED: ECC MICROSCOPIC DIAGNOSIS ECC: Fragments of benign endocervical mucosa with acute and chronic inflammation, blood and mucous. Negative for dysplasia. SJ:jamila 01/03/19 COMMENT Clinical correlation and appropriate follow up are necessary. MICROSCOPIC DESCRIPTION Slides are reviewed. GROSS DESCRIPTION Received in fixative is one container labeled with the patient's name and designated ECC. The specimen consists of multiple fragments of hemorrhagic mucoid tissue that in aggregate measure 2 x 2 x 0.2 cm. The specimen is totally submitted in one cassette. / SJ:rg 12/31/18 TC:5 CPT: 29927
[2018-12-30 18:35] LABS: Chlamydia Trachomatis by PCR Negative (Negative); Neisserai gonorrhoeae by PCR Negative (Negative); Probe Check PASS; Sample Adequacy Control PASS; Specimen Processing Control PASS
[2019-01-04 13:05] LABS: HPV Reflexed? NOT INDICATED
== END ==
PROVIDERS: Family Provider Family Medicine; PCP Family Medicine; Referring Provider Obstetrics & Gynecology; Visit Provider Obstetrics & Gynecology
DX: N93.0 Postcoital and contact bleeding (principal); Z12.4 Encounter for screening for malignant neoplasm of cervix
CPT/HCPCS: 87491; 87591; 87624; 88175; 88305; G0145

== ENCOUNTER → 2020-12-06 09:51 | Outpatient (CLI) | payer OTHER, SELFPAY ==
[2018-10-05 15:18] VITALS: BMI 33.8
[2020-12-06 12:10] LABS: Absolute Lymphocyte Count 2.46 X10^3/uL (0.83-4.51); Absolute Neutrophil Count 4.4 X10^3/uL (2.0-7.7); Basophil# 0.03 X10^3/uL; Basophil% 0.4 % (0-1); Eosinophils% 1.3 % (0-5); Hemoglobin 13.4 g/dL (12.0-15.0); Lymphocyte # 2.46 X10^3/ul (4.0); Lymphocyte % 32.6 % (19-41); Mean Corp Hgb Conc 31.9 g/dL (32-36); Mean Corpuscular Hgb 29.3 pg (27.0-32.0); Mean Corpuscular Volume 91.7 fL (81-99); Mean Platelet Vol. 10.2 fl (6.2-12.0); Monocyte# 0.56 X10^3/uL; Monocyte% 7.4 % (0-10); NRBC Flagged by Analyzer 0 % (0-5); Neutrophil # 4.38 X10^3/uL (2.7-7.7); Platelet Count 464 K/mm3 (150-450); RBC Distribution Width CV 13.1 % (11.6-14.6); Red Blood Count 4.58 M/mm3 (4.2-5.4); White Blood Count 7.6 K/mm3 (4.4-11.0)
[2020-12-06 12:39] LABS: Anion Gap 6 (5-15); BUN 13 mg/dL (7-18); BUN/Creat Ratio 18.9 RATIO (10-20); Chloride 109 mmol/L (98-107); Creatinine, Serum 0.69 mg/dL (0.55-1.02); EST Glomerular Filtration Rate 101 mL/min (>60); Est Glom Filt Rate - Afr Amer 123 mL/min (>60); Free T3 2.6 pg/mL (2.18-3.98); Glucose 96 mg/dL (74-106); Potassium 3.8 mmol/L (3.5-5.1); Sodium Level 141 mmol/L (136-145)
== END ==
PROVIDERS: PCP Family Medicine; Referring Provider Family Medicine; Visit Provider Family Medicine
DX: R63.5 Abnormal weight gain (principal)
CPT/HCPCS: 36415; 80048; 84443; 84481; 85025

== ENCOUNTER → 2020-12-18 10:09 | Outpatient (CLI) | payer OTHER, SELFPAY ==
[2018-10-05 15:18] VITALS: BMI 33.8
[2020-12-21 14:04] LABS: HPV Reflexed? NOT INDICATED
== END ==
PROVIDERS: PCP Family Medicine; Visit Provider Obstetrics & Gynecology
DX: Z12.4 Encounter for screening for malignant neoplasm of cervix (principal)
CPT/HCPCS: 88175; G0145

== ENCOUNTER → 2021-01-01 17:00 | Outpatient (CLI) | payer OTHER, SELFPAY ==
[2018-10-05 15:18] VITALS: BMI 33.8
--- NOTE | 2021-01-01 16:38 | BI_ITS ---
MAMMOGRAPHY - BILATERAL SCREENING REASON FOR EXAM: Female, 40 years old. Routine annual screening examination. PERTINENT HISTORY: Non-contributory. TECHNIQUE: Digital bilateral breast darío (3D mammographic acquisition) in the CC and MLO projections. 2-D mediolateral oblique (MLO) and craniocaudad (CC) views of both breasts were obtained. CAD: Full Field Digital Mammography with Computer Added Detection was performed. COMPARISON: None. Baseline examination. FINDINGS: Breast Composition: The breasts are heterogeneously dense, which may obscure small masses. There are no dominant masses or suspicious calcifications. No other significant abnormalities are identified. BI/SCRN MAMM (CAD)W/DARÍO BILAT IMPRESSION: Negative screening mammogram. Yearly followup mammogram recommended. (A) ASSESSMENT CATEGORY: BIRADS Category 1: Negative. A letter regarding these results will be sent to the patient by the facility within 30 days. Approximately 10% of breast cancers are not detected by mammography. A normal mammogram should not delay biopsy of a clinically suspicious abnormality. [id number] Electronically Signed: Macario Mejia MD at 8:22 EDT , Service support ,
== END ==
PROVIDERS: PCP Family Medicine; Referring Provider Obstetrics & Gynecology; Visit Provider Obstetrics & Gynecology
DX: Z12.31 Encounter for screening mammogram for malignant neoplasm of breast (principal)
CPT/HCPCS: 77063; 77067

== ENCOUNTER → 2022-11-12 | Outpatient (CLI) | payer OTHER, SELFPAY ==
[2022-11-12 14:59] LABS: Hematocrit 41.8 % (37-47); Hemoglobin 13.3 g/dL (12.0-15.0); Mean Corp Hgb Conc 31.8 g/dL (32-36); Mean Corpuscular Hgb 29.1 pg (27.0-32.0); Mean Corpuscular Volume 91.5 fL (81-99); Mean Platelet Vol. 10.2 fl (6.2-12.0); Platelet Count 407 K/mm3 (150-450); RBC Distribution Width CV 13.4 % (11.6-14.6); RBC Distribution Width SD 45.3 fl (35.1-43.9); Red Blood Count 4.57 M/mm3 (4.2-5.4); White Blood Count 9.9 K/mm3 (4.4-11.0)
[2022-11-12 15:21] LABS: ALB/GLOB Ratio 1.1 RATIO (0.9-2.4); AST(SGOT) 10 U/L (15-37); Alanine Aminotransfer ALT/SGPT 20 U/L (13-56); Albumin, Serum 3.8 g/dL (3.2-5.0); Alkaline Phosphatase 58 U/L (45-117); Anion Gap 7 (5-15); BUN 11 mg/dL (7-18); BUN/Creat Ratio 15.1 RATIO (10-20); Calcium,Total 8.7 mg/dL (8.5-10.1); Chloride 108 mmol/L (98-107); Creatinine, Serum 0.73 mg/dL (0.55-1.02); EST Glomerular Filtration Rate 94 mL/min (>60); Est Glom Filt Rate - Afr Amer 114 mL/min (>60); Free T3 2.7 pg/mL (2.18-3.98); Globulin 3.4 g/dL (2.2-4.2); Glucose 80 mg/dL (74-106); Magnesium 2.1 mg/dL (1.6-2.6); Potassium 3.7 mmol/L (3.5-5.1); Protein, Total 7.2 g/dL (6.4-8.2); Sodium Level 139 mmol/L (136-145); T4 Free Direct 1.02 ng/dL (0.76-1.46); Thyroid Stim Hormone (TSH) 1.69 uIU/mL (0.358-3.74)
[2022-11-12 15:25] LABS: Vitamin B12 303 pg/mL (211-911); Vitamin D,25 Hydroxy 14.7 ng/mL
== END | disposition home or self-care (01) ==
LOC: MFPLAB 12:28
PROVIDERS: PCP Family Medicine; Referring Provider Family Medicine; Visit Provider Family Medicine
DX: R53.83 Other fatigue (principal); E04.1 Nontoxic single thyroid nodule
CPT/HCPCS: 36415; 80053; 82306; 82533; 82607; 83735; 84439; 84443; 84481; 85027

== ENCOUNTER → 2022-11-21 | Outpatient (CLI) | payer OTHER, SELFPAY ==
--- NOTE | 2022-11-21 08:50 | US_ITS ---
STUDY: THYROID ULTRASOUND REASON FOR EXAM: Female, 42 years old. thyroid nodule FELT BY DOCTOR-RT PALP LUMP TECHNIQUE: Ultrasound evaluation of the thyroid was performed with real-time and static stacy-scale imaging. COMPARISON: None. FINDINGS: RIGHT LOBE: The right lobe of the thyroid gland measures 5.9 x 2.3 x 1.8 cm. There is a homogeneous echotexture. There are 3 nodules of the right thyroid lobe. The largest nodule measures 2.6 x 2.2 x 1.8 cm. This nodule is mixed cystic and solid, hypoechoic, dtbbq-ruax-dkev, smoothly marginated and contains no echogenic foci. TI-RADS points: 3. TI-RADS category: TR3. This nodule is mildly suspicious. Recommend FNA evaluation. LEFT LOBE: The left lobe of the thyroid gland measures 4.9 x 1.8 x 1.4 cm. There is a homogeneous echotexture. 5 mm hypoechoic solid nodule. This nodule is solid or almost completely solid, very hypoechoic, [id number]-cllo-uygr, smoothly marginated and contains no echogenic foci. TI-RADS points: 5. TI-RADS category: TR4. This nodule is moderately suspicious but no FNA or follow-up is necessary given the small size of this nodule. ISTHMUS: The isthmus measures 2.0 mm. The regional lymph nodes are normal. US/Thyroid IMPRESSION: Thyroid nodules. FNA sampling of dominant right thyroid lobe nodule recommended. Electronically Signed: Juan Hsieh (Brooks), at 18:49 EST ,
== END | disposition home or self-care (01) ==
LOC: US 08:50
PROVIDERS: PCP Family Medicine; Referring Provider Family Medicine; Visit Provider Family Medicine
DX: E04.1 Nontoxic single thyroid nodule (principal)
CPT/HCPCS: 76536

== ENCOUNTER → 2022-12-05 | Outpatient (CLI) | payer OTHER, SELFPAY ==
--- NOTE | 2022-12-05 09:15 | FLU_PTH ---
PATIENT: PRAVEEN VIERA LOC: [facility] U#:[id number] AGE/SX: 42/F ROOM: RE12/05/[address]: Dr. Hector Brown MD : 1980 BED: DIS: 12/05/2022 SPEC #: [id number] RECD: 12/05/22 11:34 STATUS: RAFAEL JAYRO #: [id number] CHIN: 12/05/22 09:[address]: Hector Brown DEPT: CYTOLOGY RECD BY: Patricia Martínez ENTERED: 12/05/22 12:09 SP TYPE: Fluid OTHR DR: Dr. Lux Duckworth MD Tissues: A - Thyroid gland, NOS B - Thyroid gland, NOS Procedures: Special Stain Group II Surgery Specimen Level IV Cytospin Fluid Cytology Other HEADER OPERATION: Fine needle aspiration, right inferior thyroid nodule PRE-OP DIAGNOSIS: Multiple thyroid nodules TISSUE SUBMITTED: A ? Right inferior thyroid nodule fluid, B - Right inferior thyroid nodule x4 slides DIAGNOSIS CYTOLOGY A. Right inferior thyroid nodule fluid, fine needle aspiration (cytospin and cell block): Consistent with benign follicular/colloid nodule ([place] Category II). Adequate for evaluation. See comment. B. Right inferior thyroid nodule, fine needle aspiration (smears): Consistent with benign follicular/colloid nodule ([place] Category II). Adequate for evaluation. See comment. SJ:jamila 12/08/2022 COMMENT A & B. Smears are cellular, the findings may represent adenomatoid nodule. Correlation with clinical, radiologic findings and appropriate follow up are necessary. CYTOLOGY STUDY Slides are reviewed. CYTOLOGY GROSS A - Received is 30 ml of red cloudy fluid labeled with the patient's name and and designated per the requisition as right inferior thyroid nodule. Submitted for cytology preparation including cell block. B - Received are four smears labeled with the patient's name and designated per the requisition as right inferior thyroid nodule. Submitted for staining. / jamila 12/05/2022 TC:5 CPT: 04740 x2, 15518
== END | disposition home or self-care (01) ==
LOC: LABSPEC 11:47
PROVIDERS: PCP Family Medicine; Referring Provider Surgery; Visit Provider Surgery
DX: E04.2 Nontoxic multinodular goiter (principal)
CPT/HCPCS: 88108; 88161; 88305; 88313

== ENCOUNTER → 2023-01-27 | Outpatient (CLI) | payer OTHER, SELFPAY ==
[2023-01-27 19:15] LABS: Vitamin B12 431 pg/mL (211-911); Vitamin D,25 Hydroxy 70.5 ng/mL
== END | disposition home or self-care (01) ==
LOC: MFPLAB 16:55
PROVIDERS: PCP Family Medicine; Visit Provider Family Medicine
DX: R79.89 Other specified abnormal findings of blood chemistry (principal); E53.8 Deficiency of other specified B group vitamins
CPT/HCPCS: 36415; 82306; 82607

== ENCOUNTER → 2023-04-14 | Outpatient (CLI) | payer OTHER, SELFPAY ==
--- NOTE | 2023-04-14 08:41 | BI_ITS ---
MAMMOGRAPHY - BILATERAL SCREENING REASON FOR EXAM: Female, 42 years old. Routine annual screening examination. PERTINENT HISTORY: Non-contributory. TECHNIQUE: Digital bilateral breast darío (3D mammographic acquisition) in the CC and MLO projections. 2-D mediolateral oblique (MLO) and craniocaudad (CC) views of both breasts were obtained. CAD: Full Field Digital Mammography with Computer Added Detection was performed. COMPARISON: Comparison is made with prior study January 01, 2021. FINDINGS: Breast Composition: The breasts are heterogeneously dense, which may obscure small masses. There are no dominant masses or suspicious calcifications. No other significant abnormalities are identified. There has been no significant change since the prior study. BI/SCRN MAMM (CAD)W/DARÍO BILAT IMPRESSION: Stable bilateral screening mammogram. Yearly follow-up mammogram recommended. (A) ASSESSMENT CATEGORY: BIRADS Category 1: Negative. A letter regarding these results will be sent to the patient by the facility within 30 days. Approximately 10% of breast cancers are not detected by mammography. A normal mammogram should not delay biopsy of a clinically suspicious abnormality. [id number] Electronically Signed: Macario Mejia MD at 10:01 EDT ,
== END | disposition home or self-care (01) ==
LOC: OPBI 08:40
PROVIDERS: PCP Family Medicine; Referring Provider Obstetrics & Gynecology; Visit Provider Obstetrics & Gynecology
DX: Z12.31 Encounter for screening mammogram for malignant neoplasm of breast (principal)
CPT/HCPCS: 77063; 77067

== ENCOUNTER → 2023-07-28 | Outpatient (CLI) | payer OTHER, SELFPAY ==
[2023-07-28 17:56] LABS: Absolute Lymphocyte Count 3.26 X10^3/uL (0.83-4.51); Absolute Neutrophil Count 5.7 X10^3/uL (2.0-7.7); Basophil# 0.04 X10^3/uL; Basophil% 0.4 % (0-1); Eosinophil# 0.12 X10^3/uL; Eosinophils% 1.2 % (0-5); Hematocrit 41.8 % (37-47); Hemoglobin 13.2 g/dL (12.0-15.0); Lymphocyte # 3.26 X10^3/ul (0.83-4.51); Lymphocyte % 32.3 % (19-41); Mean Corp Hgb Conc 31.6 g/dL (32-36); Mean Corpuscular Hgb 29.5 pg (27.0-32.0); Mean Corpuscular Volume 93.5 fL (81-99); Mean Platelet Vol. 9.8 fl (6.2-12.0); Monocyte% 8.9 % (0-10); NRBC Flagged by Analyzer 0 % (0-5); Neutrophil # 5.73 X10^3/uL (2.7-7.7); Neutrophil % 56.9 % (47-70); Platelet Count 469 K/mm3 (150-450); RBC Distribution Width CV 13.3 % (11.6-14.6); RBC Distribution Width SD 45.6 fl (35.1-43.9); Red Blood Count 4.47 M/mm3 (4.2-5.4); White Blood Count 10.1 K/mm3 (4.4-11.0)
[2023-07-28 19:44] LABS: AST(SGOT) 11 U/L (15-37); Alanine Aminotransfer ALT/SGPT 22 U/L (13-56); Albumin, Serum 3.7 g/dL (3.2-5.0); Alkaline Phosphatase 69 U/L (45-117); Anion Gap 3 (5-15); BUN 15 mg/dL (7-18); BUN/Creat Ratio 21.6 RATIO (10-20); Calcium,Total 8.6 mg/dL (8.5-10.1); Chloride 110 mmol/L (98-107); EST Glomerular Filtration Rate 99 mL/min (>60); Est Glom Filt Rate - Afr Amer 119 mL/min (>60); Estradiol 40.4 pg/mL; Follicle Stimulating Hormone 5.2 mIU/mL; Free T3 2.7 pg/mL (2.18-3.98); Globulin 3.6 g/dL (2.2-4.2); Glucose 102 mg/dL (74-106); Luteinizing Hormone 4.8 mIU/mL; Potassium 3.7 mmol/L (3.5-5.1); Protein, Total 7.3 g/dL (6.4-8.2); Sodium Level 140 mmol/L (136-145); T4 Free Direct 0.94 ng/dL (0.76-1.46); Thyroid Stim Hormone (TSH) 1.23 uIU/mL (0.358-3.74)
== END | disposition home or self-care (01) ==
LOC: MFPLAB 14:22
PROVIDERS: PCP Family Medicine; Visit Provider Family Medicine
DX: E04.1 Nontoxic single thyroid nodule (principal)
CPT/HCPCS: 36415; 80053; 82670; 83001; 83002; 84439; 84443; 84481; 85025

== ENCOUNTER → 2023-08-01 | Outpatient (CLI) | payer OTHER, SELFPAY ==
--- NOTE | 2023-08-01 10:45 | US_ITS ---
INDICATION: aub EXAMINATION: Ultrasound US Pelvis Non OB Complete With Transvaginal Imaging TECHNIQUE: Transabdominal and transvaginal pelvic ultrasound was performed. Grayscale, spectral waveform, and color flow Doppler evaluation of the adnexa. COMPARISON: FINDINGS: UTERUS: Anteverted. The uterus measures 8 x 5 x 4 cm. There is no uterine mass. The endometrial stripe measures 1.227 in AP diameter which is within normal limits. RIGHT OVARY: 2.8 x 2.1 x 1.6 cm simple cyst 1.5 cm in diameter.. Non-enlarged, normal echogenicity. There is normal arterial inflow and venous outflow present in the right ovary. LEFT OVARY: 2.0 x 1.6 x 1.5 cm.. Non-enlarged, normal echogenicity. There is normal arterial inflow and venous outflow present in the left ovary. FREE FLUID: None. US/Pelvic w/ Transvaginal IMPRESSION: Simple cyst right ovary 1.5 x 1.43 x 1.42 cm. Electronically Signed: Kvng Garcia MD at 12:09 EDT ,
== END | disposition home or self-care (01) ==
LOC: US 10:25
PROVIDERS: PCP Family Medicine; Referring Provider Family Medicine; Visit Provider Family Medicine
DX: N92.6 Irregular menstruation, unspecified (principal)
CPT/HCPCS: 76830; 76856

== ENCOUNTER → 2023-08-05 | Outpatient (CLI) | payer OTHER, SELFPAY ==
[2023-08-12 11:50] LABS: Chlamydia By Nucleic Acid AMP Negative (Negative); Gonococcus By Nucleic Acid AMP Negative (Negative); Trich. Vag By Nucleic Acid AMP Negative (Negative)
[2023-08-12 11:51] LABS: HPV Reflexed? YES, CHARGE PATIENT
[2023-08-12 11:52] LABS: HPV HIGH RISK 16/18 Negative
== END | disposition home or self-care (01) ==
LOC: LABSPEC 12:43
PROVIDERS: PCP Family Medicine; Visit Provider Nurse Practitioner Family
DX: N93.9 Abnormal uterine and vaginal bleeding, unspecified (principal); R10.9 Unspecified abdominal pain
CPT/HCPCS: 87491; 87591; 87624; 88175; G0145

== ENCOUNTER → 2024-04-15 | Outpatient (CLI) | payer OTHER, SELFPAY ==
--- NOTE | 2024-04-15 08:11 | BI_ITS ---
MAMMOGRAPHY - BILATERAL SCREENING REASON FOR EXAM: Female, 43 years old. Routine annual screening examination. PERTINENT HISTORY: Non-contributory. TECHNIQUE: Digital bilateral breast darío (3D mammographic acquisition) in the CC and MLO projections. 2-D mediolateral oblique (MLO) and craniocaudad (CC) views of both breasts were obtained. CAD: Full Field Digital Mammography with Computer Added Detection was performed. COMPARISON: Comparison is made with prior study dated April 14, 2023 and January 01, 2021. FINDINGS: Breast Composition: The breasts are heterogeneously dense, which may obscure small masses. There are no dominant masses or suspicious calcifications. No other significant abnormalities are identified. There has been no significant change since the prior study. BI/SCRN MAMM (CAD)W/DARÍO BILAT IMPRESSION: Stable bilateral screening mammogram. Yearly follow-up mammogram recommended. (A) ASSESSMENT CATEGORY: BIRADS Category 1: Negative. A letter regarding these results will be sent to the patient by the facility within 30 days. Approximately 10% of breast cancers are not detected by mammography. A normal mammogram should not delay biopsy of a clinically suspicious abnormality. [id number] Electronically Signed: Macario Mejia MD at 9:16 EDT ,
== END | disposition home or self-care (01) ==
LOC: OPBI 08:09
PROVIDERS: PCP Family Medicine; Referring Provider Specialist; Visit Provider Specialist
DX: Z12.31 Encounter for screening mammogram for malignant neoplasm of breast (principal)
CPT/HCPCS: 77063; 77067

== ENCOUNTER → 2025-07-20 | Outpatient (CLI) | payer OTHER, SELFPAY ==
--- NOTE | 2025-07-20 | LES_PTH ---
PATIENT: PRAVEEN VIERA LOC: [facility] U#:[id number] AGE/SX: 45/F ROOM: RE07/20/[address]: Dr. Lux Duckworth MD : 1980 BED: DIS: 07/20/2025 SPEC #: [id number] RECD: 07/20/25 15:13 STATUS: RAFAEL REQ #: [id number] CHIN: 07/20/25 00:[address]: Lux Duckworth DEPT: SURGICAL PATHOLOGY RECD BY: Trace Valencia Tissues: A - Skin of back, NOS Procedures: Immunohistochemical Stains Surgery Specimen Level IV IHC Stain ADDITIONAL Comments: [facility] from [facility]. Specified that location is actually "right upper back". Office is re-writing order to specify as "right". 08/21/2025 at 09:49am. - MR HEADER OPERATION: Left upper back PRE-OP DIAGNOSIS: Atypical nevus TISSUE SUBMITTED: A- Left upper back biopsy MICROSCOPIC DIAGNOSIS A. Skin, left upper back, "atypical nevus", punch biopsy: * Atypical compound melanocytic neoplasm - see note and Comment. * IHC for Melan-A, HMB45, PRAME support the diagnosis. 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 However, because of the degree of architectural disorder and presence of severe cytologic atypia, melanoma in situ arising in a nevus cannot be entirely excluded. Re-excision with an appropriate margin of uninvolved skin is recommended. It is important to note that features present prior to regression taking place cannot be evaluated. COMMENT The slides/images were reviewed in intradepartmental consultation by Dr Kathy Meyers (dermatopathology division, [facility]). MICROSCOPIC DESCRIPTION Slides are reviewed. All matched controls reacted appropriately. These tests were developed and their performance characteristics determined by [facility]. They may not have been cleared or approved by the U.S. Food and Drug Administration. The FDA has determined that such clearance or approval is not necessary. The above immunohistochemical markers and/or special stains have been reviewed by the Pathologist. All controls show appropriate reactivity. (PRAME, HMB45) All immunohistochemistry, in situ hybridization, and histochemical tests were developed by and are performed at the [facility], [address] [place] [address]. All Immunofluorescent (IF) tests were developed by and are performed at the [facility], [address] [place] [address]. All tests reported here, except those addressing HER2 overexpression as a predictive marker, have not been cleared by or approved by the US Food and Drug Administration (FDA). The laboratory is regulated under CLIA as qualified to perform high-complexity testing. The tests are used for clinical purposes. They should not be regarded as investigational or for research. GROSS DESCRIPTION A. Received in formalin labeled with the patient's name and date of . Designated as "Left upper back " is a 0.6 x 0.6 cm mcgee to light brown skin punch, excised to maximum depth of 0.3 cm. The resection margin is inked orange. Centrally on the epidermal surface is a 0.2 x 0.2 cm dark brown lesion located 0.2 cm from the peripheral edge. The specimen is bisected and entirely submitted in 1 cassette. MD 07/20/2025 CPT:02278,91089,34404t5
--- OUTSIDE RECORDS SUMMARY | 2025-07-20 14:25 | XMS RPT_ITS | CCD ---
Author Organization [facility] Care Team Providers Care Patch Driller Name Role Phone Dr. Remington Duckworth Primary Care Provider Dr. Remington Duckworth Referring Provider Dr. Hector Brown Attending Provider Kane Duckworth MD Primary Care Provider NIMA GALINDO DO Attending NIMA Kaur DO Attending Kane Ruiz MD Primary Care Provider KANE DUCKWORTH Primary Care Unavailjuanis e KANE DUCKWORTH Primary Care Unavailabl e KANE DUCKWORTH Primary Care Unavailabl e Donita, Kane Primary Care Unavailable Devorah Rivas Attending Kane José Attending Unavailable Kane Duckworth Primary Care Unavailable Kane Duckworth Referring Unavailable Kane Duckworth Primary Care Unavailable Kane Duckworth Attending Unavailable Kane Ducwkorth Primary Care Unavailable Nima Galindo Referring Unavailable Nima Galindo Attending Unavailable Allergies Allergy Classification Reported Allergen(s) Allergy Type Date of Onset Reaction(s) Facility (8 sources) Brompheniramine Drug Allergy HALLUCINATIONS [facility] (13 sources) Codeine; Translations: [CODEINE] Drug Allergy [facility] (13 sources) Latex; Translations: [LATEX] Allergy to substance Rash [facility] (8 sources) Phenylpropanolamine Drug Allergy HALLUCINATIONS [facility] (9 sources) Environmental Allergies: Uncoded; Translations: [Environmental Allergies: Uncoded] Allergy to substance 10-19-2 022 Itching [facility] (5 sources) Brompheniramine / Phenylpropanolamine; Translations: [DIMETAPP DM (PPA)] Drug Allergy 015 Mental Status Change [facility] Work Phone: (5 sources) nickel; Translations: [NICKEL] Drug Allergy 015 Rash [facility] Work Phone: (1 source) Brompheniramine Drug Allergy 018 [facility] (1 source) Codeine Drug Allergy 018 [facility] (1 source) Latex Drug allergy (disorder) 018 [facility] (1 source) Phenylpropanolamine Drug Allergy 018 [facility] Medications Current Medications Medication Drug Class(es) Dates Sig (Normalized) Sig (Original) acetaminophen 500 mg oral tablet (8 sources) Start: 10-06-2018 take 500-1000 mg by mouth every eight hours as needed Acetaminophen Active 500 - 1000 MG PO EVERY 8 HOURS NEEDED October 06, 2018 12:00am aluminum hydroxide 80 mg/ml / magnesium hydroxide 80 mg/ml / simethicone 8 mg/ml oral suspension (8 sources) Start: 10-06-2018 take 1 mL by mouth every six hours as needed Alum-Mag Hydroxide-Simeth (Mag-Al Plus Extra Strength) 30 ML suspension Active 30 ML PO EVERY 6 HOURS NEEDED October 06, 2018 12:00am docusate sodium 100 mg oral capsule (8 sources) Start: 10-06-2018 take 1 capsule by mouth twice daily Docusate Sodium (Colace) 100 MG capsule Active 100 MG PO TWICE A DAY October 06, 2018 12:00am 1 po bid to prevent constipation. doxycycline hyclate 100 mg oral tablet (1 source) Tetracycline-class Drug Start: 03-08-2024 End: 03-15-2024 take 1 tablet by mouth twice daily doxycycline (VIBRA-TABS) 100 mg tablet Indications: Rhinosinusitis Take 1 tablet by mouth two times a day for 7 days. 14 tablet 0 03/08/2024 03/15/2024 Active ergocalciferol 1.25 mg oral capsule (8 sources) Provitamin D2 Compound Start: 03-25-2018 take 1 capsule by mouth once Ergocalciferol (Vitamin D2) (Vitamin D) 50,000 UNIT capsule Active 85603 UNIT PO March 24, 2018 11:00pm famotidine 20 mg oral tablet (8 sources) Histamine-2 Receptor Antagonist Start: 10-06-2018 take 20 mg by mouth twice daily Famotidine Active 20 MG PO TWICE A DAY October 06, 2018 12:00am fluconazole 150 mg oral tablet (1 source) Azole Antifungal Start: 05-22-2023 End: 05-23-2023 take 1 tablet by mouth once daily fluconazole (DIFLUCAN) 150 mg tablet Indications: Dysuria Take 1 tablet by mouth once daily for 1 day. 1 tablet 0 05/22/2023 05/23/2023 Active Comment on above: Take 1 tablet by edgar th once daily for 1 day. LEVONORGESTREL-ETHIN ESTRADIOL (SEASONALE CONTRACEPTIVE ORAL) (4 sources) LEVONORGESTREL-E THI N ESTRADIOL (SEASONALE CONTRACEPTIVE ORAL) Take by mouth. 0 Active Comment on above: Take by mouth. ondansetron 4 mg oral tablet (8 sources) Serotonin-3 Receptor Antagonist Start: 10-06-2018 take 1 tablet by mouth every six hours as needed Ondansetron Hcl (Zofran) 4 MG tablet Active 4 MG PO EVERY 6 HOURS NEEDED October 06, 2018 10:20am phenazopyridine hydrochloride 200 mg oral tablet (8 sources) Start: 05-13-2016 take 1 tablet by mouth every eight hours as needed phenazopyridine (PYRIDIUM) 200 mg tablet Take 1 tablet by mouth three times daily as needed. 6 tablet 0 05/22/2023 Active Comment on above: Take 1 tablet by edgar th three times daily as needed for Pain. Take 1 tablet by edgar th three times daily as needed. predniSONE 50 mg oral tablet (1 source) Start: 05-13-2024 End: 05-18-2024 take 1 tablet by mouth once daily predniSONE (DELTASONE) 50 mg Indications: Right ear pain Take 1 tablet by mouth once daily for 5 days. 5 tablet 0 05/13/2024 05/18/2024 Active sulfamethoxazole 800 mg / trimethoprim 160 mg oral tablet (2 sources) Dihydrofolate Reductase Inhibitor Antibacterial, Sulfonamide Antimicrobial Start: 05-22-2023 End: 05-27-2023 take 1 tablet by mouth twice daily sulfamethoxazole-tr imethoprim (BACTRIM DS) 800-160 mg per tablet Indications: Dysuria Take 1 tablet by mouth twice daily for 5 days. 10 tablet 0 05/22/2023 05/27/2023 Active Comment on above: Take 1 tablet by edgar th twice daily for 5 days. Completed/Discontinued Medications Medication Drug Class(es) Dates Sig (Normalized) Sig (Original) oxyCODONE hydrochloride 5 mg oral tablet (8 sources) Opioid Agonist Start: 10-06-2018 End: 10-07-2018 take 5 mg by mouth every six hours as needed Oxycodone Discontinued 5 MG PO EVERY 6 HOURS NEEDED 5 October 06, 2018 12:00am October 07, 2018 12:11am Problems Problem Classification Problem Date Documented Da te Episodic/Chronic Conditions associated with dizziness or vertigo (1 source) Dizziness; Translations: [Dizziness and giddiness] 05-13-2024 Episodic Genitourinary symptoms and ill-defined conditions (1 source) Dysuria; Translations: [Dysuria] 05-22-2023 Episodic Menstrual disorders (1 source) Irregular menstruation, unspecified; Translations: [Irregular menstruation, unspecified] Onset: 08-06-2023 Chronic Other ear and sense organ disorders (1 source) Otalgia, right ear; Translations: [Otalgia, unspecified] 05-13-2024 Episodic Other female genital disorders (1 source) Abnormal uterine and vaginal bleeding, unspecified; Translations: [Abnormal uterine and vaginal bleeding, unspecified] Onset: 08-11-2023 Chronic Other screening for suspected conditions (not mental disorders or infectious disease) (1 source) Encounter for screening mammogram for malignant neoplasm of breast; Translations: [Encounter for screening mammogram for malignant neoplasm of breast] Onset: 07-05-2024 Episodic Other upper respiratory infections (1 source) Chronic sinusitis, unspecified; Translations: [Unspecified sinusitis (chronic)] 03-08-2024 Chronic Thyroid disorders (9 sources) Thyroid nodule; Translations: [Nontoxic single thyroid nodule] Onset: 08-03-2023 12-05-2022 Chronic Results Test Name Value Interpretation Reference Range Facility CNOVon 05-13-2024 CNOV Office Visit ([facility]) PRAVEEN VIERA ([id number]) 1980 F Date Time Provider Department 05/13/24 6:45 PM BERNARD RODRIGEZ [facility] During your visit today, we recorded the following information about you: Temperature Pulse Respiration Blood pressure 98.4 degrees 90/minute 21/minute 118/78 Weight 86.6 kg Bernard Rodrigez, LIVERY CAR DRIVER.LEMON PICKER 05/13/2024 6:58 PM Signed This note was created using LensVectorriter. Subjective Praveen Viera is a 43 year old female. HPI Pt complains of right ear pain for the last two days. Denies any recent swimming or trauma to the ear. She does state that she has had several ear infections over the last several months. Patient also notes that she has had several episodes of dizziness today. She states that she got dizzy while driving but when she stopped and got some water symptoms resolved. She denies any current dizziness. Review of Systems Constitutional: Negative for fever. HENT: Positive for ear pain and sneezing. Negative for sore throat. Respiratory: Negative for cough. Neurological: Positive for dizziness. Objective BP 118/78 Pulse 90 Temp 36.9 ?C (98.4 ?F) Resp 21 Wt 86.6 kg (190 lb 14.7 oz) LMP 05/11/2023 (Exact Date) SpO2 98% Physical Exam Vitals and nursing note reviewed. Constitutional: General: She is not in acute distress. Appearance: Normal appearance. She is not ill-appearing. HENT: Head: Normocephalic. Right Ear: Tympanic membrane, ear canal and external ear normal. Left Ear: Tympanic membrane, ear canal and external ear normal. Mouth/Throat: Mouth: Mucous membranes are moist. Pharynx: No oropharyngeal exudate or posterior oropharyngeal erythema. Comments: No facial swelling or dental caries noted. Eyes: Conjunctiva/sclera: Conjunctivae normal. Cardiovascular: Rate and Rhythm: Normal rate and regular rhythm. Pulmonary: Effort: Pulmonary effort is normal. Breath sounds: Normal breath sounds. Musculoskeletal: General: Normal range of motion. Cervical back: Normal range of motion. Skin: General: Skin is warm and dry. Neurological: General: No focal deficit present. Mental Status: She is alert. Psychiatric: Mood and Affect: Mood normal. Behavior: Behavior normal. Assessment and Plan ASSESSMENT/PLAN: 1. Right ear pain - ICD9: 388.70, ICD10: H92.01 There are no obvious signs of otitis media. Patient will use her home Flonase and Zyrtec. She was given a 5-day course of prednisone. She was instructed to follow-up if symptoms do not improve over the next 2 days. - PREDNISONE 50 MG TABLET 2. Dizziness: I reviewed with patient my concerns of peripheral versus central vertigo. I discussed with her that in express care I was not able to evaluate for symptomatic dizziness. Patient states that after having drank water on her previous episode symptoms resolved and she is feeling better now. I reviewed with her that if she did develop recurrent dizziness she should go to the nearest ER for more emergent evaluation. Patient understands and is agreeable. Bernard Rodrigez APRN.LEMON PICKER Allergies As of Date: 05/13/2024 Noted Allergy Reaction CODEINE 02/28/2015 2 - Rash DIMETAPP DM (PPA) 02/28/2015 1 - Mental Status Change LATEX 02/28/2015 2 - Rash Comments: open lesions NICKEL 02/28/2015 2 - Rash Date Reviewed: 05/13/2024 Reviewed by: Bernard Rodrigez APRN.LEMON PICKER - Fully Assessed Reason for Visit: Ear Problem [38] Cmt: Right ear issues, muffled hearing x 2 days Primary Visit Diagnosis:Right ear pain [H92.01] Other Visit Diagnosis:Dizziness [R42] Order(s):predniSONE (DELTASONE) 50 mgTake 1 tablet by mouth once daily for 5 days.Disp: 5 tabletRfl: 0 Prescriptions as of 05/13/2024 - predniSONE (DELTASONE) 50 mg Take 1 tablet by mouth once daily for 5 days. - phenazopyridine (PYRIDIUM) 200 mg tablet Take 1 tablet by mouth three times daily as needed. - LEVONORGESTREL-ETHIN ESTRADIOL (SEASONALE CONTRACEPTIVE ORAL) Take by mouth. - phenazopyridine (PYRIDIUM, GERIDIUM) 200 mg tablet Take 1 tablet by mouth three times daily as needed for Pain. Problem List As Of Date: 05/13/2024 (None) Prescriptions ordered this encounter Disp Refills Start End PREDNISONE 50 MG TABLET 5 ta* 0 05/13/2024 05/18/2024 Route: ORAL Sig: Take 1 tablet by mouth once daily for 5 days. Encounter Status:Closed by BERNARD RODRIGEZ on 05/13/24 Normal [facility] SCRN MAMM (CAD)W/DARÍO BILATo n 04-15-2024 SCRN MAMM (CAD)W/DARÍO BILAT [facility] Imaging Services [address] [place] [address] SCRN MAMM (CAD)W/DARÍO BILAT MR#: [id number] Acct: [id number] Name: PRAVEEN VIERA Rep #: [id number] : 1980 F 43 From: Macario arguelles MD PCP: Dr. Kane Duckworth MD Status: REG CLI Study: SCRN MAMM (CAD)W/DARÍO BILAT Date of Exam: 04/04 11/28 Exam# [id number] Ordering Dr: Nima Galindo DO [id number] MAMMOGRAPHY - BILATERAL SCREENING REASON FOR EXAM: Female, 43 years old. Routine annual screening examination. PERTINENT HISTORY: Non-contributory. TECHNIQUE: Digital bilateral breast darío (3D mammographic acquisition) in the CC and MLO projections. 2-D mediolateral oblique (MLO) and craniocaudad (CC) views of both breasts were obtained. CAD: Full Field Digital Mammography with Computer Added Detection was performed. COMPARISON: Comparison is made with prior study dated April 14, 2023 and January 01, 2021. FINDINGS: Breast Composition: The breasts are heterogeneously dense, which may obscure small masses. There are no dominant masses or suspicious calcifications. No other significant abnormalities are identified. There has been no significant change since the prior study. BI/SCRN MAMM (CAD)W/DARÍO BILAT IMPRESSION: Stable bilateral screening mammogram. Yearly follow-up mammogram recommended. (A) ASSESSMENT CATEGORY: BIRADS Category 1: Negative. A letter regarding these results will be sent to the patient by the facility within 30 days. Approximately 10% of breast cancers are not detected by mammography. A normal mammogram should not delay biopsy of a clinically suspicious abnormality. [id number] Electronically Signed: Macario Mejia MD at 9:16 EDT , CC: Dr. Kane Duckworth MD; Dr. Nima Galindo DO [employer] Principal: Signed [facility] Office Visit ([facility]) PRAVEEN VIERA ([id number]) 1980 F Date Time Provider Department 03/08/24 9:45 AM CORTNEY HENSLEY [facility] During your visit today, we recorded the following information about you: Temperature Pulse Respiration Blood pressure 98 degrees 98/minute 18/minute 118/78 Weight 84.6 kg Cortney Hensley APRN.LEMON PICKER 03/08/2024 9:55 AM Signed CC: Patient presents with: Cough: Cough, congestion, sinus, right ear pain and CAGE x 2 weeks HPI: Praveen Viera is a 43 year old female who presents to the office with complaint of head congestion, cough, nonproductive, sinus symptoms, and ear symptoms for 2 weeks. Symptoms are staying the same. Associated symptoms includes headache. Denies fever, nausea, vomiting , and diarrhea. Treatments tried include nothing so far. with no relief of symptoms. Sick contacts: unknown. History of asthma, frequent episodes of bronchitis, chronic bronchitis, bronchiectasis or COPD: No Smoker: No Seasonal/environment al allergies: No The ROS is otherwise negative. The patient's pmh, medications, allergies, and past visits are reviewed. PHYSICAL EXAM: BP 118/78 Pulse 98 Temp 36.7 ?C (98 ?F) (Tympanic) Resp 18 Wt 84.6 kg (186 lb 8.2 oz) LMP 05/11/2023 (Exact Date) SpO2 97% General appearance: alert, cooperative, pleasant, in no acute distress Head: Normocephalic Eyes: EOM's intact, conjunctiva pink and moist, no icterus, sclera white, non-injected Ears: Right ear: External ear/canal- Normal, TM - clear with good landmarks. Left ear: External ear/canal- Normal, TM - clear with good landmarks Oropharynx:moist without lesions, No erythema, exudates tonsils surgically removed Heart: Negative. RRR without obvious murmur, gallop, or rubs. No ectopy. Lungs: clear to auscultation, without rales or wheeze, good air exchange History reviewed. No pertinent past medical history. No past surgical history on file. ALLERGIES Codeine, Dimetapp Dm (Ppa), Latex, and Nickel MEDICATIONS doxycycline (VIBRA-TABS) 100 mg tablet Take 1 tablet by mouth two times a day for 7 days. phenazopyridine (PYRIDIUM) 200 mg tablet Take 1 tablet by mouth three times daily as needed. (Patient not taking: Reported on 03/08/2024) LEVONORGESTREL-ETHIN ESTRADIOL (SEASONALE CONTRACEPTIVE ORAL) Take by mouth. (Patient not taking: Reported on 03/08/2024) phenazopyridine (PYRIDIUM, GERIDIUM) 200 mg tablet Take 1 tablet by mouth three times daily as needed for Pain. (Patient not taking: Reported on 09/16/2017) No family history on file. Social History Tobacco Use Smoking status: Every Day Smokeless tobacco: Never ASSESSMENT/PLAN: 1. Rhinosinusitis - ICD9: 473.9, ICD10: J32.9 - DOXYCYCLINE HYCLATE 100 MG TABLET Prescription instructions reviewed with patient as applicable. Potential red flag symptoms discussed with the patient. Reviewed appropriate action plan to take if red flag symptoms occur. Patient agreeable to treatment plan. Cortney Hensley APRN.LEMON PICKER Allergies As of Date: 03/08/2024 Noted Allergy Reaction CODEINE 02/28/2015 2 - Rash DIMETAPP DM (PPA) 02/28/2015 1 - Mental Status Change LATEX 02/28/2015 2 - Rash Comments: open lesions NICKEL 02/28/2015 2 - Rash Date Reviewed: 03/08/2024 Reviewed by: Theodora Rivera LPN - Fully Assessed Reason for Visit: Cough [28] Cmt: Cough, congestion, sinus, right ear pain and CAGE x 2 weeks Primary Visit Diagnosis:Rhinosinus itis [J32.9] Order(s):doxycycline (VIBRA-TABS) 100 mg tabletTake 1 tablet by mouth two times a day for 7 days.Disp: 14 tabletRfl: 0 Prescriptions as of 03/08/2024 - doxycycline (VIBRA-TABS) 100 mg tablet Take 1 tablet by mouth two times a day for 7 days. - phenazopyridine (PYRIDIUM) 200 mg tablet Take 1 tablet by mouth three times daily as needed. - LEVONORGESTREL-ETHIN ESTRADIOL (SEASONALE CONTRACEPTIVE ORAL) Take by mouth. - phenazopyridine (PYRIDIUM, GERIDIUM) 200 mg tablet Take 1 tablet by mouth three times daily as needed for Pain. Problem List As Of Date: 03/08/2024 (None) Prescriptions ordered this encounter Disp Refills Start End DOXYCYCLINE HYCLATE 100 MG TABLET 14 t* 0 03/08/2024 03/15/2024 Route: ORAL Sig: Take 1 tablet by mouth two times a day for 7 days. Letter Text Encounter Status:Closed by CORTNEY HENSLEY on 03/08/24 Normal [facility] PAP I-G CT/NG/T RF HPVon HPV HIGH RISK Negative Normal [facility] Comment on above: Order Comment: Speci men Comment: [id number] Specimen Comment: Source.............Endocervix Specimen Comment: Other..............Post Menopausal Specimen Comment: No. of containers..01 ThinPrep Vial Result Comment: HPV Genotype Reflex Criteria not met, HPV Genotype not performed Performed By: #### L [id number] #### [facility] [address] [place], [address] Pelvic w/ Transvaginalon Pelvic w/ Transvaginal [facility] Imaging Services [address] [place] [address] Pelvic w/ Transvaginal MR#: [id number] Acct: [id number] Name: PRAVEEN VIERA Rep #: [id number] : 1980 F 43 From: Kvng Garcia MD PCP: Dr. Remington Duckworth MD Status: [facility] Study: Pelvic w/ Transvaginal Date of Exam: 08/01/23 Exam# [id number] Ordering Dr: Remington Duckworth MD [id number] INDICATION: aub EXAMINATION: Ultrasound US Pelvis Non OB Complete With Transvaginal Imaging TECHNIQUE: Transabdominal and transvaginal pelvic ultrasound was performed. Grayscale, spectral waveform, and color flow Doppler evaluation of the adnexa. COMPARISON: ____ FINDINGS: UTERUS: Anteverted. The uterus measures 8 x 5 x 4 cm. There is no uterine mass. The endometrial stripe measures 1.227 in AP diameter which is within normal limits. RIGHT OVARY: 2.8 x 2.1 x 1.6 cm simple cyst 1.5 cm in diameter.. Non-enlarged, normal echogenicity. There is normal arterial inflow and venous outflow present in the right ovary. LEFT OVARY: 2.0 x 1.6 x 1.5 cm.. Non-enlarged, normal echogenicity. There is normal arterial inflow and venous outflow present in the left ovary. FREE FLUID: None. US/Pelvic w/ Transvaginal IMPRESSION: Simple cyst right ovary 1.5 x 1.43 x 1.42 cm. Electronically Signed: Kvng Garcia MD at 12:09 EDT , CC: Dr. Remington Duckworth MD [employer]: Signed Normal [facility] Absolute lymphocyte countOrd ered By: Remington Duckworth on 07-28-2023 Lymphocytes Auto (Unsp spec) [#/Vol] 3.26 10*3/uL 0.83-4.51 [facility] Basophil percentageOrdered B y: Remington Duckworth on 07-28-2023 Basophils/100 WBC (Bld) 0.4 % 0-1 [facility] Bilirubin [Mass/Vol] 0.30 mg/dL 0.20-1.00 [facility] Comment on above: For patients on eltr ombopag therapy, use of Dimension [place] TBIL is not recommended. Chloride [Moles/Vol] 110 mmol/L 98-107 [facility] Eosinophils/100 WBC (Bld) 1.2 % 0-5 [facility] Glucose [Mass/Vol] 102 mg/dL 74-106 [facility] Comment on above: Fasting Glucose resu lt from 100 to 125 mg/dL suggests IMPAIRED HOMEOSTASIS per A.D.A. criteria. Neutrophils (Bld) [#/Vol] 5.7 10*3/uL 2.0-7.7 [facility] Neutrophils/100 WBC (Bld) 56.9 % 47-70 [facility] Potassium [Moles/Vol] 3.7 mmol/L 3.5-5.1 [facility] Protein [Mass/Vol] 7.3 g/dL 6.4-8.2 [facility] Sodium [Moles/Vol] 140 mmol/L 136-145 [facility] WBC (Bld) [#/Vol] 10.1 10*3/uL 4.4-11.0 [facility] Blood erythrocytes count (nu mber/volume)Ordered By: Remington Duckworth on 07-28-2023 RBC (Bld) [#/Vol] 4.47 10*6/uL 4.2-5.4 [facility] Blood hemoglobin measurement (mass/volume)Ordered By: Remington Duckworth on 07-28-2023 Hemoglobin (Bld) [Mass/Vol] 13.2 g/dL 12.0-15.0 [facility] Blood lymphocytes/100 leukoc ytesOrdered By: Remington Duckworth on 07-28-2023 Lymphocytes/100 WBC (Bld) 32.3 % 19-41 [facility] Blood monocytes/100 leukocyt esOrdered By: Remington Duckworth on 07-28-2023 Monocytes/100 WBC (Bld) 8.9 % 0-10 [facility] Blood platelet mean volumeOr dered By: Remington Duckworth on 07-28-2023 Platelet mean volume (Bld) [Entitic vol] 9.8 fL 6.2-12.0 [facility] CBC W/Diff, Automatedon - Absolute Lymph 3.26 X10 3/uL Normal 0.83-4.51 [facility] Comment on above: Order Comment: Order Date: 07/28/23 Order Info: [id number] - CBCD Performed By: #### L 500.4050, L501.9520, L506.0400, L501.18819, L3100.5055, L100.0100 #### [facility] [address] [place], [place], [id number] Absolute Neut 5.7 X10 3/uL Normal 2.0-7.7 [facility] Comment on above: Order Comment: Order Date: 07/28/23 Order Info: [id number] - CBCD Performed By: #### L 500.4050, L501.9520, L506.0400, L501.56089, L3100.5055, L100.0100 #### [facility] [address] [place], [place], [id number] [phone] Basophils/100 WBC (Bld) 0.4 % Normal 0-1 [facility] Comment on above: Order Comment: Order Date: 07/28/23 Order Info: [id number] - CBCD Performed By: #### L 500.4050, L501.9520, L506.0400, L501.98262, L3100.5055, L100.0100 #### [facility] [address] [place], [address] Eosinophils/100 WBC (Bld) 1.2 % Normal 0-5 [facility] Comment on above: Order Comment: Order Date: 07/28/23 Order Info: [id number]- - CBCD Performed By: #### L 500.4050, L501.9520, L506.0400, L501.59901, L3100.5055, L100.0100 #### [facility] [address] [place], [address] Erythrocyte distribution width (RBC) [Ratio] 13.3 % Normal 11.6-14.6 [facility] Comment on above: Order Comment: Order Date: 07/28/23 Order Info: [id number] - CBCD Performed By: #### L 500.4050, L501.9520, L506.0400, L501.88730, L3100.5055, L100.0100 #### [facility] [address] [place], [address] Hematocrit (Bld) [Volume fraction] 41.8 % Normal 37-47 [facility] Comment on above: Order Comment: Order Date: 07/28/23 Order Info: [id number]- - CBCD Performed By: #### L 500.4050, L501.9520, L506.0400, L501.81208, L3100.5055, L100.0100 #### [facility] [address] [place], [address] Hemoglobin (Bld) [Mass/Vol] 13.2 g/dL Normal 12.0-15.0 [facility] Comment on above: Order Comment: Order Date: 07/28/23 Order Info: [id number] - CBCD Performed By: #### L 500.4050, L501.9520, L506.0400, L501.33686, L3100.5055, L100.0100 #### [facility] [address] [place], [address] IG% 0.300 Normal 0.0-0.9 [facility] Comment on above: Order Comment: Order Date: 07/28/23 Order Info: [id number] - CBCD Result Comment: IG% - Immature Granulocytes (promyelocytes, myelocytes and metamyelocytes) > 1% indicates that a LEFT SHIFT is Present. Performed By: #### L 500.4050, L501.9520, L506.0400, L501.50986, L3100.5055, L100.0100 #### [facility] [address] [place], [address] Lymphocytes/100 WBC (Bld) 32.3 % Normal 19-41 [facility] Comment on above: Order Comment: Order Date: 07/28/23 Order Info: 0184-1 - CBCD Performed By: #### L 500.4050, L501.9520, L506.0400, L501.74145, L3100.5055, L100.0100 #### [facility] [address] [place], [address] MCH (RBC) [Entitic mass] 29.5 pg Normal 27.0-32.0 [facility] Comment on above: Order Comment: Order Date: 07/28/23 Order Info: 0184-1 - CBCD Performed By: #### L 500.4050, L501.9520, L506.0400, L501.94258, L3100.5055, L100.0100 #### [facility] [address] [place], [address] MCHC (RBC) [Mass/Vol] 31.6 g/dL Low 32-36 [facility] Comment on above: Order Comment: Order Date: 07/28/23 Order Info: 0184-1 - CBCD Performed By: #### L 500.4050, L501.9520, L506.0400, L501.52028, L3100.5055, L100.0100 #### [facility] [address] [place], [address] MCV (RBC) [Entitic vol] 93.5 fL Normal 81-99 [facility] Comment on above: Order Comment: Order Date: 07/28/23 Order Info: 0184-1 - CBCD Performed By: #### L 500.4050, L501.9520, L506.0400, L501.50035, L3100.5055, L100.0100 #### [facility] [address] [place], [address] Monocytes/100 WBC (Bld) 8.9 % Normal 0-10 [facility] Comment on above: Order Comment: Order Date: 07/28/23 Order Info: 0184- - CBCD Performed By: #### L 500.4050, L501.9520, L506.0400, L501.87450, L3100.5055, L100.0100 #### [facility] [address] [place], [address] Neutrophils/100 WBC (Bld) 56.9 % Normal 47-70 [facility] Comment on above: Order Comment: Order Date: 07/28/23 Order Info: 0184- - CBCD Performed By: #### L 500.4050, L501.9520, L506.0400, L501.23922, L3100.5055, L100.0100 #### [facility] [address] [place], [address] Nucleated RBC (Bld) [#/Vol] 0 10*3/uL Normal 0-5 [facility] Comment on above: Order Comment: Order Date: 07/28/23 Order Info: 0184-1 - CBCD Performed By: #### L 500.4050, L501.9520, L506.0400, L501.37389, L3100.5055, L100.0100 #### [facility] [address] [place], [address] Platelet mean volume (Bld) [Entitic vol] 9.8 fL Normal 6.2-12.0 [facility] Comment on above: Order Comment: Order Date: 07/28/23 Order Info: 0184- - CBCD Performed By: #### L 500.4050, L501.9520, L506.0400, L501.52516, L3100.5055, L100.0100 #### [facility] [address] [place], [address] Platelets (Bld) [#/Vol] 469 10*3/uL High 150-450 [facility] Comment on above: Order Comment: Order Date: 07/28/23 Order Info: 0184- - CBCD Performed By: #### L 500.4050, L501.9520, L506.0400, L501.09583, L3100.5055, L100.0100 #### [facility] [address] [place], [address] RBC (Bld) [#/Vol] 4.47 10*6/uL Normal 4.2-5.4 [facility] Comment on above: Order Comment: Order Date: 07/28/23 Order Info: 0184- - CBCD Performed By: #### L 500.4050, L501.9520, L506.0400, L501.02218, L3100.5055, L100.0100 #### [facility] [address] [place], [address] RDW SD 45.6 fl High 35.1-43.9 [facility] Comment on above: Order Comment: Order Date: 07/28/23 Order Info: 0184-1 - CBCD Performed By: #### L 500.4050, L501.9520, L506.0400, L501.60878, L3100.5055, L100.0100 #### [facility] [address] [place], [address] WBC (Bld) [#/Vol] 10.1 10*3/uL Normal 4.4-11.0 [facility] Comment on above: Order Comment: Order Date: 07/28/23 Order Info: 0184-1 - CBCD Performed By: #### L 500.4050, L501.9520, L506.0400, L501.17924, L3100.5055, L100.0100 #### [facility] [address] [place], [address] Comprehensive Metabolic Prof ilon 07-28-2023 Albumin [Mass/Vol] 3.7 g/dL Normal 3.2-5.0 [facility] Comment on above: Order Comment: Order Date: 07/28/23 Order Info: 0786-1 - CMP Order Info: 3051-0 - T3F Order Info: 3 - TSH Order Info: 3024-04 - T4F Order Info: 0553-1 - FSHLH Performed By: #### L 500.4050, L501.9520, L506.0400, L501.94078, L3100.5055, L100.0100 #### [facility] [address] [place], [address] Albumin/Globulin [Mass ratio] 1.0 {ratio} Normal 0.9-2.4 [facility] Comment on above: Order Comment: Order Date: 07/28/23 Order Info: 0786-1 - CMP Order Info: 3051-0 - T3F Order Info: 3016-3 - TSH Order Info: 3027 - T4F Order Info: 0553-1 - FSHLH Performed By: #### L 500.4050, L501.9520, L506.0400, L501.14277, L3100.5055, L100.0100 #### [facility] [address] [place], [address] ALK P 69 U/L Normal 45-117 [facility] Comment on above: Order Comment: Order Date: 07/28/23 Order Info: 0786-1 - CMP Order Info: 3050-0 - T3F Order Info: 3015-3 - TSH Order Info: 7 - T4F Order Info: 0553-1 - FSHLH Performed By: #### L 500.4050, L501.9520, L506.0400, L501.84667, L3100.5055, L100.0100 #### [facility] [address] [place], [address] ALT [Catalytic activity/Vol] 22 U/L Normal 13-56 [facility] Comment on above: Order Comment: Order Date: 07/28/23 Order Info: 86-1 - CMP Order Info: 3050-0 - T3F Order Info: 3 - TSH Order Info: 3024-04 - T4F Order Info: 0553-1 - FSHLH Performed By: #### L 500.4050, L501.9520, L506.0400, L501.49314, L3100.5055, L100.0100 #### [facility] [address] [place], [address] AST [Catalytic activity/Vol] 11 U/L Low 15-37 [facility] Comment on above: Order Comment: Order Date: 07/28/23 Order Info: 86-1 - CMP Order Info: 3050-0 - T3F Order Info: 3 - TSH Order Info: 3027 - T4F Order Info: 0553-1 - FSHLH Performed By: #### L 500.4050, L501.9520, L506.0400, L501.74996, L3100.5055, L100.0100 #### [facility] [address] [place], [address] Bilirubin [Mass/Vol] 0.30 mg/dL Normal 0.20-1.00 [facility] Comment on above: Order Comment: Order Date: 07/28/23 Order Info: 0786-1 - CMP Order Info: 3050-0 - T3F Order Info: 3 - TSH Order Info: 3024-04 - T4F Order Info: 53-1 - FSHLH Result Comment: For patients on eltrombopag therapy, use of Dimension [place] TBIL is not recommended. Performed By: #### L 500.4050, L501.9520, L506.0400, L501.47727, L3100.5055, L100.0100 #### [facility] [address] [place], [address] BUN/CRE 21.6 RATIO High 10-20 [facility] Comment on above: Order Comment: Order Date: 07/28/23 Order Info: 07-1 - CMP Order Info: 3050-0 - T3F Order Info: 3 - TSH Order Info: 3024-04 - T4F Order Info: 53-1 - FSHLH Performed By: #### L 500.4050, L501.9520, L506.0400, L501.32801, L3100.5055, L100.0100 #### [facility] [address] [place], [address] CA,Total 8.6 mg/dL Normal 8.5-10.1 [facility] Comment on above: Order Comment: Order Date: 07/28/23 Order Info: 0786-1 - CMP Order Info: 3050-0 - T3F Order Info: 3 - TSH Order Info: 3024-04 - T4F Order Info: 53-1 - FSHLH Performed By: #### L 500.4050, L501.9520, L506.0400, L501.60353, L3100.5055, L100.0100 #### [facility] [address] [place], [address] Chloride [Moles/Vol] 110 mmol/L High 98-107 [facility] Comment on above: Order Comment: Order Date: 07/28/23 Order Info: 07- - CMP Order Info: 0 - T3F Order Info: 3015-12 - TSH Order Info: 3024-04 T4F Order Info: 552-10 - FSHLH Performed By: #### L 500.4050, L501.9520, L506.0400, L501.09807, L3100.5055, L100.0100 #### [facility] [address] [place], [address] CO2 [Moles/Vol] 27.0 mmol/L Normal 21.0-32.0 [facility] Comment on above: Order Comment: Order Date: 07/28/23 Order Info: 785-1 - CMP Order Info: 0 - T3F Order Info: 3015-12 - TSH Order Info: 3024-04 T4F Order Info: 552-10 - FSHLH Performed By: #### L 500.4050, L501.9520, L506.0400, L501.30251, L3100.5055, L100.0100 #### [facility] [address] [place], [address] Creatinine [Mass/Vol] 0.70 mg/dL Normal 0.55-1.02 [facility] Comment on above: Order Comment: Order Date: 07/28/23 Order Info: 07 - CMP Order Info: 0 - T3F Order Info: 3015-12 - TSH Order Info: 3024-04 T4F Order Info: 552-10 - FSHLH Result Comment: The validity of the calculated GFR GFRAA in patients over 70 years has not been determined. Clinical correlation is essential. Performed By: #### L 500.4050, L501.9520, L506.0400, L501.55712, L3100.5055, L100.0100 #### [facility] [address] [place], [address] EST GFR - AA 119 mL/min Normal >60 [facility] Comment on above: Order Comment: Order Date: 07/28/23 Order Info: 0786 - CMP Order Info: 0 - T3F Order Info: 3015-12 - TSH Order Info: 3024-04 T4F Order Info: 552- - FSHLH Result Comment: Afri can [place]ian GFR Calc Performed By: #### L 500.4050, L501.9520, L506.0400, L501.43742, L3100.5055, L100.0100 #### [facility] [address] [place], [address] GAP 3 Low 5-15 [facility] Comment on above: Order Comment: Order Date: 07/28/23 Order Info: 07 - CMP Order Info: 0 - T3F Order Info: 3015-12 - TSH Order Info: 3024-04 T4F Order Info: 552-10 - FSHLH Performed By: #### L 500.4050, L501.9520, L506.0400, L501.08396, L3100.5055, L100.0100 #### [facility] [address] [place], [place], [id number] (795) GFR/1.73 sq M.predicted among non-blacks MDRD (S/P/Bld) [Vol rate/Area] 99 mL/min/{1.73_m2} Normal >60 [facility] Comment on above: Order Comment: Order Date: 07/28/23 Order Info: 0786- - CMP Order Info: 0 - T3F Order Info: 3015-12 - TSH Order Info: 3024-04 T4F Order Info: 53-1 - FSHLH Result Comment: Non- GFR Calc Performed By: #### L 500.4050, L501.9520, L506.0400, L501.47137, L3100.5055, L100.0100 #### [facility] [address] [place], [address] Globulin (S) [Mass/Vol] 3.6 g/dL Normal 2.2-4.2 [facility] Comment on above: Order Comment: Order Date: 07/28/23 Order Info: 07- - CMP Order Info: 0 - T3F Order Info: 3015-12 - TSH Order Info: 3024-04 T4F Order Info: 552-1 - FSHLH Performed By: #### L 500.4050, L501.9520, L506.0400, L501.23588, L3100.5055, L100.0100 #### [facility] [address] [place], [address] Glucose [Mass/Vol] 102 mg/dL Normal 74-106 [facility] Comment on above: Order Comment: Order Date: 07/28/23 Order Info: 785-10 - CMP Order Info: 0 - T3F Order Info: 3015-12 - TSH Order Info: 3024-04 T4 Order Info: 53- - FSHLH Result Comment: Fast ing Glucose result from 100 to 125 mg/dL suggests IMPAIRED HOMEOSTASIS per A.D.A. criteria. Performed By: #### L 500.4050, L501.9520, L506.0400, L501.74753, L3100.5055, L100.0100 #### [facility] [address] [place], [address] Potassium [Moles/Vol] 3.7 mmol/L Normal 3.5-5.1 [facility] Comment on above: Order Comment: Order Date: 07/28/23 Order Info: 0786 - CMP Order Info: 0 - T3F Order Info: 3015-12 - TSH Order Info: 3024-04 T4F Order Info: 53-1 - FSHLH Performed By: #### L 500.4050, L501.9520, L506.0400, L501.72551, L3100.5055, L100.0100 #### [facility] [address] [place], [address] Sodium [Moles/Vol] 140 mmol/L Normal 136-145 [facility] Comment on above: Order Comment: Order Date: 07/28/23 Order Info: 86-1 - CMP Order Info: 3050-0 - T3F Order Info: 3015-3 - TSH Order Info: 7 - T4F Order Info: 53-1 - FSHLH Performed By: #### L 500.4050, L501.9520, L506.0400, L501.71906, L3100.5055, L100.0100 #### [facility] [address] [place], [place], [id number] T PROT 7.3 g/dL Normal 6.4-8.2 [facility] Comment on above: Order Comment: Order Date: 07/28/23 Order Info: 785-1 - CMP Order Info: 0 - T3F Order Info: 3 - TSH Order Info: 3024-04 - T4F Order Info: 53-1 - FSHLH Performed By: #### L 500.4050, L501.9520, L506.0400, L501.18741, L3100.5055, L100.0100 #### [facility] [address] [place], [address] Urea nitrogen [Mass/Vol] 15 mg/dL Normal 7-18 [facility] Comment on above: Order Comment: Order Date: 07/28/23 Order Info: 785-1 - CMP Order Info: 0 - T3F Order Info: 3 - TSH Order Info: 7 - T4F Order Info: 0553-1 - FSHLH Performed By: #### L 500.4050, L501.9520, L506.0400, L501.23271, L3100.5055, L100.0100 #### [facility] [address] [place], [address] Determination of erythrocyte mean corpuscular volume (MCV)Ordered By: Remington Duckworth on 07-28-2023 MCV (RBC) [Entitic vol] 93.5 fL 81-99 [facility] Estradiolon 07-28-2023 ESTRADIOL 40.4 pg/mL Normal [facility] Comment on above: Order Comment: Order Date: 07/28/23 Order Info: 0786-1 - CMP Order Info: 0 - T3F Order Info: 3015-12 - TSH Order Info: 3024-04 Order Info: 552-10 - FSHLH Result Comment: NORM AL REFERENCE RANGES FEMALE FOLLICULAR 21.4 - 164.8 pg/mL MID-CYCLE PEAK 49.9 - 367.2 pg/mL LUTEAL 40.2 - 259.0 pg/mL POST-MENOPAUSAL ON MHT <11.0 - 462.1 pg/mL NOT ON MHT <11.0 - 58.3 pg/mL MALE <11.0 - 52.5 pg/mL NOTE: [employer] HAS CONFIRMED THE DRUG FULVETRANT (FASLODEX) MAY CAUSE FALSELY ELEVATED ESTRADIOL RESULTS WHEN USING THIS TEST METHOD. IF PATIENT IS TAKING FULVESTRANT AN ALTERNATIVE METHOD SHOULD BE USED TO DETERMINE ESTRADIOL CONCENTRATION. Performed By: #### L 3300.1750 #### [facility] [address] [place], [place], [address] FSH and LHon 07-28-2023 FSH 5.2 mIU/mL Normal [facility] Comment on above: Order Comment: Order Date: 07/28/23 Order Info: 0786-1 - CMP Order Info: - T3F Order Info: 3015-12 - TSH Order Info: 3024-04 Order Info: 0553 - FSHLH Result Comment: NORMAL REFERENCE RANGES FEMALE FOLLICULAR 2.3 - 12.6 mIU/mL MID-CYCLE PEAK 5.2 - 17.5 mIU/mL LUTEAL 1.7 - 12.9 mIU/mL POST-MENOPAUSAL ON MHT 5.9 - 72.8 mIU/mL NOT ON MHT 12.7 - 132.2 mlU/mL MALE 0.7 - 10.8 mIU/mL Performed By: #### L 500.4050, L501.9520, L506.0400, L501.79280, L3100.5055, L100.0100 #### [facility] [address] [place], [place], [id number] LH 4.8 mIU/mL Normal [facility] Comment on above: Order Comment: Order Date: 07/28/23 Order Info: 0786-1 - CMP Order Info: 0 - T3F Order Info: 3 - TSH Order Info: 3024-04 - T4F Order Info: 552-10 - FSHLH Result Comment: NORMAL REFERENCE RANGES FEMALE FOLLICULAR 1.9 - 26.2 mIU/mL MID-CYCLE PEAK 22.8 - 76.1 mIU/mL LUTEAL 0.6 - 16.6 mIU/mL POST-MENOPAUSAL ON MHT 1.1 - 52.4 mIU/mL NOT ON MHT 8.6 - 61.8 mIU/mL MALE 1.2 - 10.6 mIU/mL Performed By: #### L 500.4050, L501.9520, L506.0400, L501.31321, L3100.5055, L100.0100 #### [facility] [address] [place], [address] Free T3on 07-28-2023 Free T3 [Mass/Vol] 2.7 pg/mL Normal 2.18-3.98 [facility] Comment on above: Order Comment: Order Date: 07/28/23 Order Info: 0786-1 - CMP Order Info: 0 - T3F Order Info: 3015-12 - TSH Order Info: 3024-04 - T4F Order Info: 552-10 - FSHLH Performed By: #### L 500.4050, L501.9520, L506.0400, L501.93198, L3100.5055, L100.0100 #### [facility] [address] [place], [address] Hematocrit Auto (Bld) [Volum e fraction]Ordered By: Remington Duckworth on 07-28-2023 Hematocrit (Bld) [Volume fraction] 41.8 % 37-47 [facility] - Chemistry and C hemistry - challengeOrdered By: Remington Duckworth on 07-28-2023 ALP [Catalytic activity/Vol] 69 U/L 45-117 [facility] ALT [Catalytic activity/Vol] 22 U/L 13-56 [facility] CO2 [Moles/Vol] 27.0 mmol/L 21.0-32.0 [facility] Free T4 [Mass/Vol] 0.94 ng/dL 0.76-1.46 [facility] Globulin (S) [Mass/Vol] 3.6 g/dL 2.2-4.2 [facility] Urea nitrogen/Creatinine [Mass ratio] 21.6 mg/mg 10-20 [facility] - Hematology and Cell countsOrdered By: Remington Duckworth on 07-28-2023 Erythrocyte distribution width (RBC) [Entitic vol] 45.6 fL 35.1-43.9 [facility] Erythrocyte distribution width (RBC) [Ratio] 13.3 % 11.6-14.6 [facility] Immature granulocytes/100 WBC (Bld) 0.300 % 0.0-0.9 [facility] Comment on above: IG% - Immature Granu locytes (promyelocytes, myelocytes and metamyelocytes) > 1% indicates that a LEFT SHIFT is Present. MCH (RBC) [Entitic mass] 29.5 pg 27.0-32.0 [facility] Nucleated RBC/100 WBC (Bld) [Ratio] 0 % 0-5 [facility] MCHC Auto (RBC) [Mass/Vol]Or dered By: Remnigton Duckworth on 07-28-2023 MCHC (RBC) [Mass/Vol] 31.6 g/dL 32-36 [facility] No Panel InformationOrdered By: Remington Duckworth on 07-28-2023 Estimated GFR (MDRD) Amer 119 mL/min >60 [facility] Comment on above: GFR Calc Estimated GFR (MDRD) Non-Af Amer 99 mL/min >60 [facility] Comment on above: Non- GFR Calc Follicle Stimulating Hormone 5.2 mIU/mL [facility] Comment on above: NORMAL REFERENCE RAN GES FEMALE FOLLICULAR 2.3 - 12.6 mIU/mL MID-CYCLE PEAK 5.2 - 17.5 mIU/mL LUTEAL 1.7 - 12.9 mIU/mL POST-MENOPAUSAL ON MHT 5.9 - 72.8 mIU/mL NOT ON MHT 12.7 - 132.2 mlU/mL MALE 0.7 - 10.8 mIU/mL Free Triiodothyronine (T3) pg/dL 2.7 pg/mL 2.18-3.98 [facility] Luteinizing Hormone 4.8 mIU/mL [facility] Comment on above: NORMAL REFERENCE RAN GES FEMALE FOLLICULAR 1.9 - 26.2 mIU/mL MID-CYCLE PEAK 22.8 - 76.1 mIU/mL LUTEAL 0.6 - 16.6 mIU/mL POST-MENOPAUSAL ON MHT 1.1 - 52.4 mIU/mL NOT ON MHT 8.6 - 61.8 mIU/mL MALE 1.2 - 10.6 mIU/mL Thyroid Stimulating Hormone (TSH) 1.23 uIU/mL 0.358-3.74 [facility] Platelets bldOrdered By: Cari fryejorge l Donita on 07-28-2023 Platelets (Bld) [#/Vol] 469 10*3/uL 150-450 [facility] Serum or plasma albumin tommy urement (mass/volume)Ordered By: Remington Duckworth on 07-28-2023 Albumin [Mass/Vol] 3.7 g/dL 3.2-5.0 [facility] Serum or plasma albumin/glob ulin mass ratioOrdered By: Remington Duckworth on 07-28-2023 Albumin/Globulin [Mass ratio] 1.0 {ratio} 0.9-2.4 [facility] Serum or plasma calcium tommy urement (mass/volume)Ordered By: Remington Duckworth on 07-28-2023 Calcium [Mass/Vol] 8.6 mg/dL 8.5-10.1 [facility] Serum or plasma creatinine m easurement (mass/volume)Ordered By: Remington Duckworth on 07-28-2023 Creatinine [Mass/Vol] 0.70 mg/dL 0.55-1.02 [facility] Comment on above: The validity of the calculated GFR & GFRAA in patients over 70 years has not been determined. Clinical correlation is essential. Serum or plasma estradiol (E 2) measurement (mass/volume)Ordered By: Remington Duckworth on 07-28-2023 E2 [Mass/Vol] 40.4 pg/mL [facility] Comment on above: NORMAL REFERENCE RAN GES FEMALE FOLLICULAR 21.4 - 164.8 pg/mL MID-CYCLE PEAK 49.9 - 367.2 pg/mL LUTEAL 40.2 - 259.0 pg/mL POST-MENOPAUSAL ON MHT <11.0 - 462.1 pg/mL NOT ON MHT <11.0 - 58.3 pg/mL MALE <11.0 - 52.5 pg/mL NOTE:[employer] HAS CONFIRMED THE DRUG FULVETRANT (FASLODEX) MAY CAUSE FALSELY ELEVATED ESTRADIOL RESULTS WHEN USING THIS TEST METHOD. IF PATIENT IS TAKING FULVESTRANT AN ALTERNATIVE METHOD SHOULD BE USED TO DETERMINE ESTRADIOL CONCENTRATION. Serum or plasma urea nitroge n measurement (mass/volume)Ordered By: Remington Duckworth on 07-28-2023 Urea nitrogen [Mass/Vol] 15 mg/dL 7-18 [facility] T4 Free Directon 07-28-2023 T4 FREE DIRECT 0.94 ng/dL Normal 0.76-1.46 [facility] Comment on above: Order Comment: Order Date: 07/28/23 Order Info: 0786-1 - CMP Order Info: 3051-0 - T3F Order Info: 3016-3 - TSH Order Info: 3024-7 - T4F Order Info: 0553-1 - FSHLH Performed By: #### L 500.4050, L501.9520, L506.0400, L501.82937, L3100.5055, L100.0100 #### [facility] [address] [place], [address] Thin prep Papanicolaou smear with manual screeningOrdered By: Remington Duckworth on 07-28-2023 Thin prep Papanicolaou smear with manual screening 11 U/L 15-37 [facility] Thin prep Papanicolaou smear with manual screening 3 5-15 [facility] Thyroid Stim Hormone (TSH)on 07-28-2023 TSH 1.23 uIU/mL Normal 0.358-3.74 [facility] Comment on above: Order Comment: Order Date: 07/28/23 Order Info: 0786-1 - CMP Order Info: 3051-0 - T3F Order Info: 3016-3 - TSH Order Info: 3024-7 - T4F Order Info: 0553-1 - FSHLH Performed By: #### L 500.4050, L501.9520, L506.0400, L501.41692, L3100.5055, L100.0100 #### [facility] [address] [place], [address] CNPCornelia 05-24-2023 MIKEN Telephone (UCWSTR) PRAVEEN VIERA ([id number]) 1980 F Date Time Provider Department 05/24/23 [facility] During your visit today, we recorded the following information about you: Rukhsana Rosa 05/24/2023 11:08 AM Signed ----- Message from Constance Silva APRN.LEMON PICKER sent at 05/24/2023 9:08 AM EDT ----- Urine culture did not show clear evidence of infection. She may continue to take antibiotic if it has been helpful. If not improving, recommend follow up with PCP. MKIE Martínez Melissa 05/24/2023 11:09 AM Signed Patient given results and verbalized understanding of instructions given. Rukhsana Rosa Allergies As of Date: 05/24/2023 Noted Allergy Reaction CODEINE 02/28/2015 2 - Rash DIMETAPP DM (PPA) 02/28/2015 1 - Mental Status Change LATEX 02/28/2015 2 - Rash Comments: open lesions NICKEL 02/28/2015 2 - Rash Date Reviewed: 05/22/2023 Reviewed by: Alfreda You LPN - Fully Assessed Reason for Visit: Results [95] Prescriptions as of 05/24/2023 - sulfamethoxazole-tri methoprim (BACTRIM DS) 800-160 mg per tablet Take 1 tablet by mouth twice daily for 5 days. - phenazopyridine (PYRIDIUM) 200 mg tablet Take 1 tablet by mouth three times daily as needed. - LEVONORGESTREL-ETHIN ESTRADIOL (SEASONALE CONTRACEPTIVE ORAL) Take by mouth. - phenazopyridine (PYRIDIUM, GERIDIUM) 200 mg tablet Take 1 tablet by mouth three times daily as needed for Pain. Problem List As Of Date: 05/24/2023 (None) Encounter Status:Closed by RUKHSANA ROSA on 05/24/23 Normal [facility] Bacteria Ur Culton 3 Bacteria identified Cx Nom (U) CULTURE, URINE: Normal urogenital nupur: ORGANISM ID: 1 50,000-<100,000 CFU/ml Lactobacillus jensenii No further workup Normal [facility] Comment on above: Performed By: #### 6 30-4 #### [facility] CLIA [id number] [address] [place] [address] [facility] CNOVon 05-22-2023 CNOV Office Visit (UCWSTR) PRAVEEN VIERA ([id number]) 1980 F Date Time Provider Department 05/22/23 4:15 PM [facility] During your visit today, we recorded the following information about you: Temperature Pulse Respiration Blood pressure 98.7 degrees 87/minute 16/minute 142/80 Weight Last Period 83.3 kg 05/11/23 Vane Nelson APRN.LEMON PICKER 05/22/2023 5:07 PM Signed This note was created using [employer]. Subjective Praveen Viera is a 43 year old female. 43 year old female with no PMH presents with complaints of possible UTI. Acute onset 5 days ago +burning +itching +suprapubic. Denies vaginal discharge. Denies vaginal bleeding. Recently sexually active with , x 2 over past week Denies concerns for STI Denies fever or chills Utilized over the counter yeast infection medicine The history is provided by the patient. No specialized language instructor was used. UTI This is a new problem. The current episode started more than 2 days ago. The problem occurs every urination. The problem has not changed since onset.The quality of the pain is described as burning. The pain is at a severity of 4/10. The pain is mild. There has been no fever. She is Sexually active. Associated symptoms include frequency and urgency. Pertinent negatives include no chills, no sweats, no nausea, no vomiting, no discharge, no hematuria, no hesitancy, no possible and no flank pain. Treatments tried: OTC medicines. Her past medical history does not include kidney stones, single kidney, urological procedure, recurrent UTIs, urinary stasis or catheterization. No past medical history on file. No past surgical history on file. ALLERGIES Codeine, Dimetapp Dm (Ppa), Latex, and Nickel MEDICATIONS sulfamethoxazole-tri methoprim (BACTRIM DS) 800-160 mg per tablet Take 1 tablet by mouth twice daily for 5 days. fluconazole (DIFLUCAN) 150 mg tablet Take 1 tablet by mouth once daily for 1 day. phenazopyridine (PYRIDIUM) 200 mg tablet Take 1 tablet by mouth three times daily as needed. LEVONORGESTREL-ETHIN ESTRADIOL (SEASONALE CONTRACEPTIVE ORAL) Take by mouth. phenazopyridine (PYRIDIUM, GERIDIUM) 200 mg tablet Take 1 tablet by mouth three times daily as needed for Pain. (Patient not taking: Reported on 09/16/2017) No family history on file. Social History Tobacco Use Smoking status: Every Day Smokeless tobacco: Never Review of Systems Constitutional: Negative for chills, fatigue and fever. Eyes: Negative for photophobia, pain, discharge, redness, itching and visual disturbance. Respiratory: Negative for apnea, choking and chest tightness. Cardiovascular: Negative for chest pain, palpitations and leg swelling. Gastrointestinal: Negative for abdominal pain, nausea and vomiting. Genitourinary: Positive for dysuria, frequency and urgency. Negative for flank pain, hematuria and hesitancy. Musculoskeletal: Negative for arthralgias and back pain. Skin: Negative for color change, pallor, rash and wound. Allergic/Immunologic : Negative for environmental allergies, food allergies and immunocompromised state. Hematological: Negative for adenopathy. Does not bruise/bleed easily. Psychiatric/Behavior al: Negative for behavioral problems. Objective BP 142/80 Pulse 87 Temp 37.1 ?C (98.7 ?F) Resp 16 Wt 83.3 kg (183 lb 9.6 oz) LMP 05/11/2023 (Exact Date) SpO2 99% Physical Exam Vitals and nursing note reviewed. Constitutional: General: She is not in acute distress. Appearance: Normal appearance. She is normal weight. She is not ill-appearing, toxic-appearing or diaphoretic. HENT: Head: Normocephalic and atraumatic. Right Ear: Ear canal and external ear normal. Left Ear: Ear canal and external ear normal. Nose: Nose normal. No congestion or rhinorrhea. Mouth/Throat: Mouth: Mucous membranes are moist. Pharynx: No oropharyngeal exudate or posterior oropharyngeal erythema. Eyes: General: Right eye: No discharge. Left eye: No discharge. Extraocular Movements: Extraocular movements intact. Conjunctiva/sclera: Conjunctivae normal. Pupils: Pupils are equal, round, and reactive to light. Cardiovascular: Rate and Rhythm: Normal rate and regular rhythm. Pulses: Normal pulses. Heart sounds: Normal heart sounds. No murmur heard. No friction rub. Pulmonary: Effort: Pulmonary effort is normal. No respiratory distress. Breath sounds: Normal breath sounds. No stridor. No wheezing, rhonchi or rales. Chest: Chest wall: No tenderness. Abdominal: General: Abdomen is flat. There is no distension. Palpations: Abdomen is soft. There is no mass. Tenderness: There is no abdominal tenderness. There is no right CVA tenderness, left CVA tenderness, guarding or rebound. Hernia: No hernia is present. Musculoskeletal: General: No swelling, tenderness, deformity or signs of injury. No (more content not included)... Normal [facility] UA DIP, URINE (POC)on 2022 BILIRUBIN UA (POCT) Negative Negative [facility] CLARITY UA (POCT) Clear [facility] COLOR UA (POCT) Yellow [facility] GLUCOSE UA (POCT) Negative Negative mg/dL [facility] Hemoglobin Ql (U) Trace-intact Abnormal Negative [facility] KETONE UA (POCT) Negative Negative mg/dL [facility] LEUKOCYTES UA (POCT) Small Abnormal Negative [facility] NITRITE UA (POCT) Negative Negative [facility] PH UA (POCT) 6.0 4.5 - 8.0 [facility] Protein Ql (U) Negative Negative mg/dL [facility] SPECIFIC GRAVITY UA (POCT) 1.025 1.005 - 1.030 [facility] UROBILINOGEN UA (POCT) 0.2 E.U./dL Normal E.U./ dL [facility] Laboratory - Chemistry and C hemistry - challengeOrdered By: Dr. Duckworth on 01-27-2023 Cobalamin (Vitamin B12) [Mass/Vol] 431 pg/mL 211-911 [facility] No Panel InformationOrdered By: Dr. Duckworth on 01-27-2023 Vitamin D 25-Hydroxy 70.5 ng/mL [facility] Comment on above: Vitamin D 25(OH) Sta tus Range Deficiency <20 ng/mL (50nmol/L) Insufficiency 20 - 30 ng/mL (50 - 75 nmol/L) Sufficiency 30 - 100 ng/mL (75 - 250 nmol/L) Toxicity >100 ng/mL (>250 nmol/L) Basophil percentageOrdered B y: Dr. Duckworth on 11-12-2022 Bilirubin [Mass/Vol] 0.50 mg/dL 0.20-1.00 [facility] Comment on above: For patients on eltr ombopag therapy, use of Dimension [place] TBIL is not recommended. Chloride [Moles/Vol] 108 mmol/L 98-107 [facility] Glucose [Mass/Vol] 80 mg/dL 74-106 [facility] Potassium [Moles/Vol] 3.7 mmol/L 3.5-5.1 [facility] Protein [Mass/Vol] 7.2 g/dL 6.4-8.2 [facility] Sodium [Moles/Vol] 139 mmol/L 136-145 [facility] WBC (Bld) [#/Vol] 9.9 10*3/uL 4.4-11.0 [facility] Blood erythrocytes count (nu mber/volume)Ordered By: Dr. Duckworth on 11-12-2022 RBC (Bld) [#/Vol] 4.57 10*6/uL 4.2-5.4 [facility] Blood hemoglobin measurement (mass/volume)Ordered By: Dr. Duckworth on 11-12-2022 Hemoglobin (Bld) [Mass/Vol] 13.3 g/dL 12.0-15.0 [facility] Blood platelet mean volumeOr dered By: Dr. Duckworth on 11-12-2022 Platelet mean volume (Bld) [Entitic vol] 10.2 fL 6.2-12.0 [facility] Determination of erythrocyte mean corpuscular volume (MCV)Ordered By: Dr. Duckworth on 11-12-2022 MCV (RBC) [Entitic vol] 91.5 fL 81-99 [facility] Hematocrit Auto (Bld) [Volum e fraction]Ordered By: Dr. Duckworth on 11-12-2022 Hematocrit (Bld) [Volume fraction] 41.8 % 37-47 [facility] Laboratory - Chemistry and C hemistry - challengeOrdered By: Dr. Duckworth on 11-12-2022 ALP [Catalytic activity/Vol] 58 U/L 45-117 [facility] ALT [Catalytic activity/Vol] 20 U/L 13-56 [facility] CO2 [Moles/Vol] 24.0 mmol/L 21.0-32.0 [facility] Cobalamin (Vitamin B12) [Mass/Vol] 303 pg/mL 211-911 [facility] Free T4 [Mass/Vol] 1.02 ng/dL 0.76-1.46 [facility] Globulin (S) [Mass/Vol] 3.4 g/dL 2.2-4.2 [facility] Magnesium [Mass/Vol] 2.1 mg/dL 1.6-2.6 [facility] Urea nitrogen/Creatinine [Mass ratio] 15.1 mg/mg 10-20 [facility] Laboratory - Hematology and Cell countsOrdered By: Dr. Duckworth on 11-12-2022 Erythrocyte distribution width (RBC) [Entitic vol] 45.3 fL 35.1-43.9 [facility] Erythrocyte distribution width (RBC) [Ratio] 13.4 % 11.6-14.6 [facility] MCH (RBC) [Entitic mass] 29.1 pg 27.0-32.0 [facility] MCHC Auto (RBC) [Mass/Vol]Or dered By: Dr. Duckworth on 11-12-2022 MCHC (RBC) [Mass/Vol] 31.8 g/dL 32-36 [facility] No Panel InformationOrdered By: Dr. Duckworth on 11-12-2022 Estimated GFR (MDRD) Amer 114 mL/min >60 [facility] Comment on above: GFR Calc Estimated GFR (MDRD) Non-Af Amer 94 mL/min >60 [facility] Comment on above: Non- GFR Calc Free Triiodothyronine (T3) pg/dL 2.7 pg/mL 2.18-3.98 [facility] Thyroid Stimulating Hormone (TSH) 1.69 uIU/mL 0.358-3.74 [facility] Vitamin D 25-Hydroxy 14.7 ng/mL [facility] Comment on above: Vitamin D 25(OH) Sta tus Range Deficiency <20 ng/mL (50nmol/L) Insufficiency 20 - 30 ng/mL (50 - 75 nmol/L) Sufficiency 30 - 100 ng/mL (75 - 250 nmol/L) Toxicity >100 ng/mL (>250 nmol/L) Platelets bldOrdered By: Dr. Duckworth on 11-12-2022 Platelets (Bld) [#/Vol] 407 10*3/uL 150-450 [facility] Serum or plasma albumin tommy urement (mass/volume)Ordered By: Dr. Duckworth on 11-12-2022 Albumin [Mass/Vol] 3.8 g/dL 3.2-5.0 [facility] Serum or plasma albumin/glob ulin mass ratioOrdered By: Dr. Duckworth on 11-12-2022 Albumin/Globulin [Mass ratio] 1.1 {ratio} 0.9-2.4 [facility] Serum or plasma calcium tommy urement (mass/volume)Ordered By: Dr. Duckworth on 11-12-2022 Calcium [Mass/Vol] 8.7 mg/dL 8.5-10.1 [facility] Serum or plasma cortisol sangeetha surement (mass/volume)Ordered By: Dr. Duckworth on 11-12-2022 Cortisol [Mass/Vol] 6.20 ug/dL 3.44-22.45 [facility] Comment on above: Adult (AM) 5.27 - 22 .45 ug/dL Adult (PM) 3.44 - 16.76 ug/dLPlease note revised CORTISOL reference range effective 2019. Serum or plasma creatinine m easurement (mass/volume)Ordered By: Dr. Duckworth on 11-12-2022 Creatinine [Mass/Vol] 0.73 mg/dL 0.55-1.02 [facility] Comment on above: The validity of the calculated GFR & GFRAA in patients over 70 years has not been determined. Clinical correlation is essential. Serum or plasma urea nitroge n measurement (mass/volume)Ordered By: Dr. Duckworth on 11-12-2022 Urea nitrogen [Mass/Vol] 11 mg/dL 7-18 [facility] Thin prep Papanicolaou smear with manual screeningOrdered By: Dr. Duckworth on 11-12-2022 Thin prep Papanicolaou smear with manual screening 10 U/L 15-37 [facility] Thin prep Papanicolaou smear with manual screening 7 5-15 [facility] Vital Signs Date Time Vital Sign Value Performing Clinician Facility 05-13-2024 18:42-0400 Body temperature 98.4 [degF] Bernard Moomaw [employer]IVERY [employer]IVER.[employer] Work Phone: [facility] 05-13-2024 18:42-0400 Body weight 86.6 kg Bernard Moomaw [employer]IVERY [employer]IVER[employer] Work Phone: [facility] 05-13-2024 18:42-0400 Diastolic blood pressure 78 mm[Hg] Bernard Moomaw [employer]IVERY [employer]IVER.[employer] Work Phone: [facility] 05-13-2024 18:42-0400 Heart rate 90 /min Bernard Moomaw [employer]IVERY [employer]IVER[employer] Work Phone: [facility] 05-13-2024 18:42-0400 Respiratory rate 21 /min Bernard Moomaw [employer]IVERY [employer] DRIVER.[employer] Work Phone: [facility] 05-13-2024 18:42-0400 SaO2% (BldA) [Mass fraction] 98 % Bernard Rennyomaw [employer]IVERY [employer]IVER.[employer] Work Phone: [facility] 05-13-2024 18:42-0400 Systolic blood pressure 118 mm[Hg] Bernard Rennyomaw LIVERY CAR DRIVER.[employer] Work Phone: [facility] 03-08-2024 09:41-0400 Body temperature 98.01 [degF] Cortney Hensely [employer]IVERY CAR [employer]IVER.[employer] Work Phone: [facility] 03-08-2024 09:41-0400 Body weight 84.6 kg Cortney Hensley [employer]IVERY [employer]IVER.[employer] Work Phone: [facility] 03-08-2024 09:41-0400 Diastolic blood pressure 78 mm[Hg] Cortney Hensley [employer]IVERY CAR [employer]IVER.[employer] Work Phone: [facility] 03-08-2024 09:41-0400 Heart rate 98 /min Cortney Hensley [employer]IVERY CAR DRIVER.[employer] Work Phone: [facility] 03-08-2024 09:41-0400 Respiratory rate 18 /min Cortney Hensley [employer]IVERY [employer]IVER.[employer] Work Phone: [facility] 03-08-2024 09:41-0400 SaO2% (BldA) [Mass fraction] 97 % Crotney Hensley [employer]IVERY CAR DRIVER.[employer] Work Phone: [facility] 03-08-2024 09:41-0400 Systolic blood pressure 118 mm[Hg] Cortney Hensley [employer]IVERY CAR DRIVER.[employer] Work Phone: [facility] 05-22-2023 16:23-0400 Body temperature 98.71 [degF] Vane Nelson [employer]IVERY CAR DRIVER.[employer] Work Phone: [facility] 05-22-2023 16:23-0400 Body weight 83.28 kg Vane Nelson LIVERY CAR DRIVER.[employer] Work Phone: [facility] 05-22-2023 16:23-0400 Diastolic blood pressure 80 mm[Hg] Vane Nelson LIVERY CAR DRIVER.[employer] Work Phone: [facility] 05-22-2023 16:23-0400 Heart rate 87 /min Vane Nelson LIVERY [employer] DRIVER.[employer] Work Phone: [facility] 05-22-2023 16:23-0400 Respiratory rate 16 /min Vane Nelson LIVERY CAR DRIVER.[employer] Work Phone: [facility] 05-22-2023 16:23-0400 SaO2% (BldA) [Mass fraction] 99 % Vane Nelson LIVERY CAR DRIVER.[employer] Work Phone: [facility] 05-22-2023 16:23-0400 Systolic blood pressure 142 mm[Hg] Vane Nelson LIVERY CAR DRIVER.[employer] Work Phone: [facility] 12-05-2022 08:55-0500 Body height 154.[address] Remington Duckworth Work Phone: [facility] 12-05-2022 08:55-0500 Body mass index (BMI) [Ratio] 33.4 kg/m2 Dr. Remington Duckworth Work Phone: [facility] 12-05-2022 08:55-0500 Body temperature 97.9 [degF] Dr. Remington Duckworth Work Phone: [facility] 12-05-2022 08:55-0500 Body weight 80.[address] Remington Duckworth Work Phone: [facility] 12-05-2022 08:55-0500 Diastolic blood pressure 82 mm[Hg] Dr. Remington Duckworth Work Phone: [facility] 12-05-2022 08:55-0500 Heart rate 93 /min Dr. Remington Duckworth Work Phone: [facility] 12-05-2022 08:55-0500 Respiratory rate 17 /min Dr. Remington Duckworth Work Phone: [facility] 12-05-2022 08:55-0500 SaO2% (BldA) [Mass fraction] 98 % Dr. Remington Duckworth Work Phone: [facility] 12-05-2022 08:55-0500 Systolic blood pressure 124 mm[Hg] Dr. Remington Duckworth Work Phone: [facility] Encounters Encounter Date Encounter Type Care Provider Facility Start: 05-13-2024 End: 05-13-2024 ambulatory NORA Chloe DUCKWORTH Facility:[facility] Start: 05-13-2024 End: 05-13-2024 Patient encounter procedure Bernard Rodrigez PEEWEE.[employer]MON [employer]ICKER Work Phone: [facility] Comment on above: Right ear pain (Prim sam Dx); Dizziness Start: 04-15-2024 End: 04-15-2024 ambulatory Kane Duckworth Facility:[facility] Start: 03-08-2024 End: 03-08-2024 ambulatory KANE DUCKWORTH Facility:[facility] Start: 03-08-2024 End: 03-08-2024 Patient encounter procedure Cortney Hensley APRN.[employer]ER Work Phone: [facility] Comment on above: Rhinosinusitis (Prim sam Dx) Start: 09-17-2023 End: 09-18-2023 ambulatory NIMA GALINDO DO Facility:[facility] Start: 09-17-2023 End: 09-17-2023 Patient encounter procedure NIMA GALINDO DO [facility] Start: 08-05-2023 End: 08-05-2023 ambulatory [facility] Work Phone: Start: 08-05-2023 End: 08-05-2023 Patient encounter procedure [facility], Spec[facility] Work Phone: Start: 08-05-2023 End: 08-05-2023 ambulatory [facility] Facility:[facility] Start: 08-01-2023 End: 08-01-2023 ambulatory [facility] Work Phone: Start: 08-01-2023 End: 08-01-2023 Patient encounter procedure [facility] Work Phone: Start: 08-01-2023 End: 08-01-2023 ambulatory Kane Duckworth Facility:[facility] Start: 07-28-2023 End: 07-28-2023 ambulatory [facility] Work Phone: Start: 07-28-2023 End: 07-28-2023 Patient encounter procedure [facility] Start: 07-28-2023 End: 07-28-2023 ambulatory Kane Duckworth Facility:[facility] Start: 05-24-2023 Telephone encounter Constance Ricardo LIVERY CAR DRIVER.[employer] Work Phone: [facility] Comment on above: Results Start: 05-22-2023 End: 05-22-2023 ambulatory KANE DUCKWORTH Facility:[facility] Start: 05-22-2023 End: 05-22-2023 Patient encounter procedure Vane Nelson LIVERY [employer]IVER.[employer] Work Phone: [facility] Comment on above: Dysuria (Primary Dx) Start: 04-14-2023 End: 04-14-2023 ambulatory [facility] Work Phone: Start: 04-14-2023 End: 04-14-2023 Patient encounter procedure [facility] Work Phone: Start: 01-27-2023 End: 01-27-[address] Remington Duckworth Work Phone: [facility] Work Phone: Start: 01-27-2023 End: 01-27-[address] Remington Duckworth Work Phone: [facility] Start: 12-05-2022 End: 12-05-[address] Remington Duckworth Work Phone: [facility] Work Phone: Start: 12-05-2022 End: 12-05-[address] Remington Duckworth Work Phone: [facility], Specimen Start: 12-05-2022 End: 12-05-[address] Remington Duckworth Work Phone: [facility] Start: 11-21-2022 End: 11-21-2022 ambulatory [facility] Work Phone: Start: 11-21-2022 End: 11-21-2022 Patient encounter procedure [facility], [facility] Start: 11-12-2022 End: 11-12-2022 ambulatory [facility] Work Phone: Start: 11-12-2022 End: 11-12-2022 Patient encounter procedure [facility], [facility] Procedures Date Procedure Procedure Detail Performing Clinician Start: 08-01-2023 Pelvic echography Start: 05-22-2023 Urnls dip stick/tabl et rgnt auto w/o microscopy Cortney Hensley APRN.[employer] Work Phone: Start: 04-14-2023 Screening mammography Start: 11-21-2022 US scan of thyroid Plan of Treatment Date Care Activity Detail Author Start: 11-01-2028 Urine microalbumin profile DTaP,Tdap,Td Vaccine (2 - Td or Tdap) [facility] Start: 12-18-2025 Screening for malignant neoplasm of cervix Pap Testing [facility] Start: 06-05-2024 Influenza vaccination [facility] Start: 04-14-2024 Screening for malignant neoplasm of breast Mammogram Screening [facility] Start: 12-19-2023 Screening for malignant neoplasm of cervix Cervical Cancer Screening [facility] Start: 10-05-2023 Behavioral Health Screening Behavioral Health Screening [facility] Start: 06-05-2023 Covid-19 Vaccine ( season) Covid-19 Vaccine ( season) [facility] Start: 06-05-2023 Influenza vaccination INFLUENZA (#1) [facility] Start: 11-21-2022 US scan of thyroid Thyroid [facility] Start: 11-03-2022 COVID-19 VACCINE (5 - Moderna series) COVID-19 VACCINE (5 - Moderna series) [facility] Start: 10-05-2022 DEPRESSION ASSESSMENT DEPRESSION ASSESSMENT [facility] Start: 2022 Mammography MAMMOGRAM [facility] Start: 2012 HPV TESTING HPV TESTING [facility] Start: 2012 Screening for malignant neoplasm of cervix HPV Testing [facility] Start: 2003 PAP TESTING PAP TESTING [facility] Start: 2001 Urine microalbumin profile DTAP,TDAP,TD (1 - Tdap) [facility] Start: 2000 Anxiety Screening Anxiety Screening [facility] Start: 2000 Depression Screening Depression Screening [facility] Start: 2000 HEPATITIS C SCREENING HEPATITIS C SCREENING [facility] Start: 2000 Hepatitis C screening Hepatitis C Screening [facility] Start: 2000 HIV SCREENING HIV SCREENING [facility] Start: 2000 HIV screening HIV Screening [facility] Start: 1988 PNEUMOCOCCAL (1 - PCV) PNEUMOCOCCAL (1 - PCV) [facility] Start: 1988 Pneumococcal vaccination Pneumococcal Vaccine (1 of 2 - PCV) [facility] Start: 1982 HEPATITIS B (1 of 3 - 3-dose series) HEPATITIS B (1 of 3 - 3-dose series) [facility] Bacteria identified in Urine by Culture URINE CULTURE Microbiology Routine Dysuria 05/22/2023 4:50 PM EDT [facility] Work Phone: Neisseria gonorrhoea e nucleic acid detection [facility] Path report.final Dx Spec [facility] PCR test for Chlamyd ia trachomatis [facility] Immunizations Immunization Date Immunization Notes Care Provider Arminda yee 06-21-2018 Influenza virus vaccine [facility] Payers Date Payer Category Payer Private Health Insurance [id number] 2023 Self-pay [id number] 2014 Private Health Insurance [id number] 2014 Private Health Insurance [id number] 1982 Unknown [id number] 1982 Unknown [id number] Unknown [id number] Unknown [id number] [id number] Unknown [id number] [id number] [id number] Unknown [id number] [id number] Social History Date Type Detail Facility Start: 10-07-2018 End: 12-05-2022 Tobacco smoking status [facility] Unknown if ever smoked [facility] Start: 10-07-2018 Cigarettes [facility] Start: 1980 Sex Assigned At Female [facility] Start: 05-22-2023 Tobacco smoking stat us [facility] Smokes tobacco daily [facility] Start: 05-22-2023 Tobacco use and exposure Smokeless tobacco non-user [facility] Start: 05-22-2023 End: 05-13-2024 Alcohol intake Not Asked [facility] Start: 05-22-2023 End: 07-23-2023 History of Social function [facility] Start: 05-22-2023 End: 07-23-2023 Tobacco use panel [facility] National Score (1-100), lower number is lower risk Not on file [facility] Start: 1980 Sex Assigned At Not on file [facility] Tobacco smoking status No Smokin g Status Entered [facility] Clinical Notes 05-22-2023 to 05-13-2024 Bernard Rodrigez APRN.[employer]ER - 05/13/2024 6:45 PM Cortney Bell APRN.MIKE - 03/08/2024 9:47 AM EDTTelephone Rukhsana Velazquez - 05/24/2023 11:09 AM EDT Note Date & Type Note Facility 05-13-2024 Note HNO ID: [id number] Author: BERNARD RODRIGEZ APRN.[employer]MON PICKER Service: ? Author Type: Nurse Practitioner Type: Progress Notes Filed: 05/13/2024 18:58 Note Text: This note was created using [employer]. Subjective Praveen Viera is a 43 year old female. HPI Pt complains of right ear pain for the last two days. Denies any recent swimming or trauma to the ear. She does state that she has had several ear infections over the last several months. Patient also notes that she has had several episodes of dizziness today. She states that she got dizzy while driving but when she stopped and got some water symptoms resolved. She denies any current dizziness. Review of Systems Constitutional: Negative for fever. HENT: Positive for ear pain and sneezing. Negative for sore throat. Respiratory: Negative for cough. Neurological: Positive for dizziness. Objective BP 118/78 Pulse 90 Temp 36.9 ?C (98.4 ?F) Resp 21 Wt 86.6 kg (190 lb 14.7 oz) LMP 05/11/2023 (Exact Date) SpO2 98% Physical Exam Vitals and nursing note reviewed. Constitutional: General: She is not in acute distress. Appearance: Normal appearance. She is not ill-appearing. HENT: Head: Normocephalic. Right Ear: Tympanic membrane, ear canal and external ear normal. Left Ear: Tympanic membrane, ear canal and external ear normal. Mouth/Throat: Mouth: Mucous membranes are moist. Pharynx: No oropharyngeal exudate or posterior oropharyngeal erythema. Comments: No facial swelling or dental caries noted. Eyes: Conjunctiva/sclera: Conjunctivae normal. Cardiovascular: Rate and Rhythm: Normal rate and regular rhythm. Pulmonary: Effort: Pulmonary effort is normal. Breath sounds: Normal breath sounds. Musculoskeletal: General: Normal range of motion. Cervical back: Normal range of motion. Skin: General: Skin is warm and dry. Neurological: General: No focal deficit present. Mental Status: She is alert. Psychiatric: Mood and Affect: Mood normal. Behavior: Behavior normal. Assessment and Plan ASSESSMENT/PLAN: 1. Right ear pain - ICD9: 388.70, ICD10: H92.01 There are no obvious signs of otitis media. Patient will use her home Flonase and Zyrtec. She was given a 5-day course of prednisone. She was instructed to follow-up if symptoms do not improve over the next 2 days. - PREDNISONE 50 MG TABLET 2. Dizziness: I reviewed with patient my concerns of peripheral versus central vertigo. I discussed with her that in express care I was not able to evaluate for symptomatic dizziness. Patient states that after having drank water on her previous episode symptoms resolved and she is feeling better now. I reviewed with her that if she did develop recurrent dizziness she should go to the nearest ER for more emergent evaluation. Patient understands and is agreeable. Bernard Rodrigez APRN.[facility] 05-13-2024 History of Presen t illness Narrative This note was created using LensVectorriter. Subjective Praveen Viera is a 43 year old female. HPI Pt complains of right ear pain for the last two days. Denies any recent swimming or trauma to the ear. She does state that she has had several ear infections over the last several months. Patient also notes that she has had several episodes of dizziness today. She states that she got dizzy while driving but when she stopped and got some water symptoms resolved. She denies any current dizziness. Review of Systems Constitutional: Negative for fever. HENT: Positive for ear pain and sneezing. Negative for sore throat. Respiratory: Negative for cough. Neurological: Positive for dizziness. Objective BP 118/78 Pulse 90 Temp 36.9 C (98.4 F) Resp 21 Wt 86.6 kg (190 lb 14.7 oz) LMP 05/11/2023 (Exact Date) SpO2 98% Physical Exam Vitals and nursing note reviewed. Constitutional: General: She is not in acute distress. Appearance: Normal appearance. She is not ill-appearing. HENT: Head: Normocephalic. Right Ear: Tympanic membrane, ear canal and external ear normal. Left Ear: Tympanic membrane, ear canal and external ear normal. Mouth/Throat: Mouth: Mucous membranes are moist. Pharynx: No oropharyngeal exudate or posterior oropharyngeal erythema. Comments: No facial swelling or dental caries noted. Eyes: Conjunctiva/sclera: Conjunctivae normal. Cardiovascular: Rate and Rhythm: Normal rate and regular rhythm. Pulmonary: Effort: Pulmonary effort is normal. Breath sounds: Normal breath sounds. Musculoskeletal: General: Normal range of motion. Cervical back: Normal range of motion. Skin: General: Skin is warm and dry. Neurological: General: No focal deficit present. Mental Status: She is alert. Psychiatric: Mood and Affect: Mood normal. Behavior: Behavior normal. Assessment and Plan ASSESSMENT/PLAN: 1. Right ear pain - ICD9: 388.70, ICD10: H92.01 There are no obvious signs of otitis media. Patient will use her home Flonase and Zyrtec. She was given a 5-day course of prednisone. She was instructed to follow-up if symptoms do not improve over the next 2 days. - PREDNISONE 50 MG TABLET 2. Dizziness: I reviewed with patient my concerns of peripheral versus central vertigo. I discussed with her that in express care I was not able to evaluate for symptomatic dizziness. Patient states that after having drank water on her previous episode symptoms resolved and she is feeling better now. I reviewed with her that if she did develop recurrent dizziness she should go to the nearest ER for more emergent evaluation. Patient understands and is agreeable. Bernard Rodrigez APRN.MIKE documented in this encounter [facility] 03-08-2024 Note HNO ID: [id number] Author: CORTNEY HENSLEY APRN.MIKE Service: ? Author Type: Nurse Practitioner Type: Progress Notes Filed: 03/08/2024 09:55 Note Text: CC: Patient presents with: Cough: Cough, congestion, sinus, right ear pain and CAGE x 2 weeks HPI: Praveen Viera is a 43 year old female who presents to the office with complaint of head congestion, cough, nonproductive, sinus symptoms, and ear symptoms for 2 weeks. Symptoms are staying the same. Associated symptoms includes headache. Denies fever, nausea, vomiting , and diarrhea. Treatments tried include nothing so far. with no relief of symptoms. Sick contacts: unknown. History of asthma, frequent episodes of bronchitis, chronic bronchitis, bronchiectasis or COPD: No Smoker: No Seasonal/environmental allergies: No The ROS is otherwise negative. The patient's pmh, medications, allergies, and past visits are reviewed. PHYSICAL EXAM: BP 118/78 Pulse 98 Temp 36.7 ?C (98 ?F) (Tympanic) Resp 18 Wt 84.6 kg (186 lb 8.2 oz) LMP 05/11/2023 (Exact Date) SpO2 97% General appearance: alert, cooperative, pleasant, in no acute distress Head: Normocephalic Eyes: EOM's intact, conjunctiva pink and moist, no icterus, sclera white, non-injected Ears: Right ear: External ear/canal- Normal, TM - clear with good landmarks. Left ear: External ear/canal- Normal, TM - clear with good landmarks Oropharynx:moist without lesions, No erythema, exudates tonsils surgically removed Heart: Negative. RRR without obvious murmur, gallop, or rubs. No ectopy. Lungs: clear to auscultation, without rales or wheeze, good air exchange History reviewed. No pertinent past medical history. No past surgical history on file. ALLERGIES Codeine, Dimetapp Dm (Ppa), Latex, and Nickel MEDICATIONS doxycycline (VIBRA-TABS) 100 mg tablet Take 1 tablet by mouth two times a day for 7 days. phenazopyridine (PYRIDIUM) 200 mg tablet Take 1 tablet by mouth three times daily as needed. (Patient not taking: Reported on 03/08/2024) LEVONORGESTREL-ETHIN ESTRADIOL (SEASONALE CONTRACEPTIVE ORAL) Take by mouth. (Patient not taking: Reported on 03/08/2024) phenazopyridine (PYRIDIUM, GERIDIUM) 200 mg tablet Take 1 tablet by mouth three times daily as needed for Pain. (Patient not taking: Reported on 09/16/2017) No family history on file. Social History Tobacco Use Smoking status: Every Day Smokeless tobacco: Never ASSESSMENT/PLAN: 1. Rhinosinusitis - ICD9: 473.9, ICD10: J32.9 - DOXYCYCLINE HYCLATE 100 MG TABLET Prescription instructions reviewed with patient as applicable. Potential red flag symptoms discussed with the patient. Reviewed appropriate action plan to take if red flag symptoms occur. Patient agreeable to treatment plan. Cortney Hensley APRN.[facility] 03-08-2024 History of Presen t illness Narrative CC: Patient presents with: Cough: Cough, congestion, sinus, right ear pain and CAGE x 2 weeks HPI: Praveen Viera is a 43 year old female who presents to the office with complaint of head congestion, cough, nonproductive, sinus symptoms, and ear symptoms for 2 weeks. Symptoms are staying the same. Associated symptoms includes headache. Denies fever, nausea, vomiting , and diarrhea. Treatments tried include nothing so far. with no relief of symptoms. Sick contacts: unknown. History of asthma, frequent episodes of bronchitis, chronic bronchitis, bronchiectasis or COPD: No Smoker: No Seasonal/environmental allergies: No The ROS is otherwise negative. The patient's pmh, medications, allergies, and past visits are reviewed. PHYSICAL EXAM: BP 118/78 Pulse 98 Temp 36.7 C (98 F) (Tympanic) Resp 18 Wt 84.6 kg (186 lb 8.2 oz) LMP 05/11/2023 (Exact Date) SpO2 97% General appearance: alert, cooperative, pleasant, in no acute distress Head: Normocephalic Eyes: EOM's intact, conjunctiva pink and moist, no icterus, sclera white, non-injected Ears: Right ear: External ear/canal- Normal, TM - clear with good landmarks. Left ear: External ear/canal- Normal, TM - clear with good landmarks Oropharynx:moist without lesions, No erythema, exudates tonsils surgically removed Heart: Negative. RRR without obvious murmur, gallop, or rubs. No ectopy. Lungs: clear to auscultation, without rales or wheeze, good air exchange History reviewed. No pertinent past medical history. No past surgical history on file. ALLERGIES Codeine, Dimetapp Dm (Ppa), Latex, and Nickel MEDICATIONS doxycycline (VIBRA-TABS) 100 mg tablet Take 1 tablet by mouth two times a day for 7 days. phenazopyridine (PYRIDIUM) 200 mg tablet Take 1 tablet by mouth three times daily as needed. (Patient not taking: Reported on 03/08/2024) LEVONORGESTREL-ETHIN ESTRADIOL (SEASONALE CONTRACEPTIVE ORAL) Take by mouth. (Patient not taking: Reported on 03/08/2024) phenazopyridine (PYRIDIUM, GERIDIUM) 200 mg tablet Take 1 tablet by mouth three times daily as needed for Pain. (Patient not taking: Reported on 09/16/2017) No family history on file. Social History Tobacco Use Smoking status: Every Day Smokeless tobacco: Never ASSESSMENT/PLAN: 1. Rhinosinusitis - ICD9: 473.9, ICD10: J32.9 - DOXYCYCLINE HYCLATE 100 MG TABLET Prescription instructions reviewed with patient as applicable. Potential red flag symptoms discussed with the patient. Reviewed appropriate action plan to take if red flag symptoms occur. Patient agreeable to treatment plan. Cortney Hensley APRN.MIKE documented in this encounter [facility] 05-24-2023 Miscellaneous Notes Patient given results and verbalized understanding of instructions given. Rukhsana Rosa ----- Message from Constance Silva APRN.MIKE sent at 05/24/2023 9:08 AM EDT ----- Urine culture did not show clear evidence of infection. She may continue to take antibiotic if it has been helpful. If not improving, recommend follow up with PCP. Constance Silva CNP documented in this encounter [facility] 05-22-2023 Note HNO ID: [id number] Author: Vane Nelson APRN.MIKE Service: ? Author Type: Nurse Practitioner Type: Progress Notes Filed: 05/22/2023 5:07 PM Note Text: This note was created using LensVectorriter. Subjective Praveen Viera is a 43 year old female. 43 year old female with no PMH presents with complaints of possible UTI. Acute onset 5 days ago +burning +itching +suprapubic. Denies vaginal discharge. Denies vaginal bleeding. Recently sexually active with , x 2 over past week Denies concerns for STI Denies fever or chills Utilized over the counter yeast infection medicine The history is provided by the patient. No specialized language instructor was used. UTI This is a new problem. The current episode started more than 2 days ago. The problem occurs every urination. The problem has not changed since onset.The quality of the pain is described as burning. The pain is at a severity of 4/10. The pain is mild. There has been no fever. She is Sexually active. Associated symptoms include frequency and urgency. Pertinent negatives include no chills, no sweats, no nausea, no vomiting, no discharge, no hematuria, no hesitancy, no possible and no flank pain. Treatments tried: OTC medicines. Her past medical history does not include kidney stones, single kidney, urological procedure, recurrent UTIs, urinary stasis or catheterization. No past medical history on file. No past surgical history on file. ALLERGIES Codeine, Dimetapp Dm (Ppa), Latex, and Nickel MEDICATIONS sulfamethoxazole-trimethoprim (BACTRIM DS) 800-160 mg per tablet Take 1 tablet by mouth twice daily for 5 days. fluconazole (DIFLUCAN) 150 mg tablet Take 1 tablet by mouth once daily for 1 day. phenazopyridine (PYRIDIUM) 200 mg tablet Take 1 tablet by mouth three times daily as needed. LEVONORGESTREL-ETHIN ESTRADIOL (SEASONALE CONTRACEPTIVE ORAL) Take by mouth. phenazopyridine (PYRIDIUM, GERIDIUM) 200 mg tablet Take 1 tablet by mouth three times daily as needed for Pain. (Patient not taking: Reported on 09/16/2017) No family history on file. Social History Tobacco Use Smoking status: Every Day Smokeless tobacco: Never Review of Systems Constitutional: Negative for chills, fatigue and fever. Eyes: Negative for photophobia, pain, discharge, redness, itching and visual disturbance. Respiratory: Negative for apnea, choking and chest tightness. Cardiovascular: Negative for chest pain, palpitations and leg swelling. Gastrointestinal: Negative for abdominal pain, nausea and vomiting. Genitourinary: Positive for dysuria, frequency and urgency. Negative for flank pain, hematuria and hesitancy. Musculoskeletal: Negative for arthralgias and back pain. Skin: Negative for color change, pallor, rash and wound. Allergic/Immunologic: Negative for environmental allergies, food allergies and immunocompromised state. Hematological: Negative for adenopathy. Does not bruise/bleed easily. Psychiatric/Behavioral: Negative for behavioral problems. Objective BP 142/80 Pulse 87 Temp 37.1 ?C (98.7 ?F) Resp 16 Wt 83.3 kg (183 lb 9.6 oz) LMP 05/11/2023 (Exact Date) SpO2 99% Physical Exam Vitals and nursing note reviewed. Constitutional: General: She is not in acute distress. Appearance: Normal appearance. She is normal weight. She is not ill-appearing, toxic-appearing or diaphoretic. HENT: Head: Normocephalic and atraumatic. Right Ear: Ear canal and external ear normal. Left Ear: Ear canal and external ear normal. Nose: Nose normal. No congestion or rhinorrhea. Mouth/Throat: Mouth: Mucous membranes are moist. Pharynx: No oropharyngeal exudate or posterior oropharyngeal erythema. Eyes: General: Right eye: No discharge. Left eye: No discharge. Extraocular Movements: Extraocular movements intact. Conjunctiva/sclera: Conjunctivae normal. Pupils: Pupils are equal, round, and reactive to light. Cardiovascular: Rate and Rhythm: Normal rate and regular rhythm. Pulses: Normal pulses. Heart sounds: Normal heart sounds. No murmur heard. No friction rub. Pulmonary: Effort: Pulmonary effort is normal. No respiratory distress. Breath sounds: Normal breath sounds. No stridor. No wheezing, rhonchi or rales. Chest: Chest wall: No tenderness. Abdominal: General: Abdomen is flat. There is no distension. Palpations: Abdomen is soft. There is no mass. Tenderness: There is no abdominal tenderness. There is no right CVA tenderness, left CVA tenderness, guarding or rebound. Hernia: No hernia is present. Musculoskeletal: General: No swelling, tenderness, deformity or signs of injury. Normal range of motion. Cervical back: Normal range of motion and neck supple. No rigidity. Right lower leg: No edema. Left lower leg: No edema. Lymphadenopathy: Cervical: No cervical adenopathy. Skin: General: Skin is warm and dry. Capillary Refill: Capillary refill takes less than 2 seco (more content not included)... [facility] 05-22-2023 History of Presen t illness Narrative This note was created using LensVectorriter. Subjective Praveen Viera is a 43 year old female. 43 year old female with no PMH presents with complaints of possible UTI. Acute onset 5 days ago +burning +itching +suprapubic. Denies vaginal discharge. Denies vaginal bleeding. Recently sexually active with , x 2 over past week Denies concerns for STI Denies fever or chills Utilized over the counter yeast infection medicine The history is provided by the patient. No specialized language instructor was used. UTI This is a new problem. The current episode started more than 2 days ago. The problem occurs every urination. The problem has not changed since onset.The quality of the pain is described as burning. The pain is at a severity of 4/10. The pain is mild. There has been no fever. She is Sexually active. Associated symptoms include frequency and urgency. Pertinent negatives include no chills, no sweats, no nausea, no vomiting, no discharge, no hematuria, no hesitancy, no possible and no flank pain. Treatments tried: OTC medicines. Her past medical history does not include kidney stones, single kidney, urological procedure, recurrent UTIs, urinary stasis or catheterization. No past medical history on file. No past surgical history on file. ALLERGIES Codeine, Dimetapp Dm (Ppa), Latex, and Nickel MEDICATIONS sulfamethoxazole-trimethoprim (BACTRIM DS) 800-160 mg per tablet Take 1 tablet by mouth twice daily for 5 days. fluconazole (DIFLUCAN) 150 mg tablet Take 1 tablet by mouth once daily for 1 day. phenazopyridine (PYRIDIUM) 200 mg tablet Take 1 tablet by mouth three times daily as needed. LEVONORGESTREL-ETHIN ESTRADIOL (SEASONALE CONTRACEPTIVE ORAL) Take by mouth. phenazopyridine (PYRIDIUM, GERIDIUM) 200 mg tablet Take 1 tablet by mouth three times daily as needed for Pain. (Patient not taking: Reported on 09/16/2017) No family history on file. Social History Tobacco Use Smoking status: Every Day Smokeless tobacco: Never Review of Systems Constitutional: Negative for chills, fatigue and fever. Eyes: Negative for photophobia, pain, discharge, redness, itching and visual disturbance. Respiratory: Negative for apnea, choking and chest tightness. Cardiovascular: Negative for chest pain, palpitations and leg swelling. Gastrointestinal: Negative for abdominal pain, nausea and vomiting. Genitourinary: Positive for dysuria, frequency and urgency. Negative for flank pain, hematuria and hesitancy. Musculoskeletal: Negative for arthralgias and back pain. Skin: Negative for color change, pallor, rash and wound. Allergic/Immunologic: Negative for environmental allergies, food allergies and immunocompromised state. Hematological: Negative for adenopathy. Does not bruise/bleed easily. Psychiatric/Behavioral: Negative for behavioral problems. Objective BP 142/80 Pulse 87 Temp 37.1 C (98.7 F) Resp 16 Wt 83.3 kg (183 lb 9.6 oz) LMP 05/11/2023 (Exact Date) SpO2 99% Physical Exam Vitals and nursing note reviewed. Constitutional: General: She is not in acute distress. Appearance: Normal appearance. She is normal weight. She is not ill-appearing, toxic-appearing or diaphoretic. HENT: Head: Normocephalic and atraumatic. Right Ear: Ear canal and external ear normal. Left Ear: Ear canal and external ear normal. Nose: Nose normal. No congestion or rhinorrhea. Mouth/Throat: Mouth: Mucous membranes are moist. Pharynx: No oropharyngeal exudate or posterior oropharyngeal erythema. Eyes: General: Right eye: No discharge. Left eye: No discharge. Extraocular Movements: Extraocular movements intact. Conjunctiva/sclera: Conjunctivae normal. Pupils: Pupils are equal, round, and reactive to light. Cardiovascular: Rate and Rhythm: Normal rate and regular rhythm. Pulses: Normal pulses. Heart sounds: Normal heart sounds. No murmur heard. No friction rub. Pulmonary: Effort: Pulmonary effort is normal. No respiratory distress. Breath sounds: Normal breath sounds. No stridor. No wheezing, rhonchi or rales. Chest: Chest wall: No tenderness. Abdominal: General: Abdomen is flat. There is no distension. Palpations: Abdomen is soft. There is no mass. Tenderness: There is no abdominal tenderness. There is no right CVA tenderness, left CVA tenderness, guarding or rebound. Hernia: No hernia is present. Musculoskeletal: General: No swelling, tenderness, deformity or signs of injury. Normal range of motion. Cervical back: Normal range of motion and neck supple. No rigidity. Right lower leg: No edema. Left lower leg: No edema. Lymphadenopathy: Cervical: No cervical adenopathy. Skin: General: Skin is warm and dry. Capillary Refill: Capillary refill takes less than 2 seconds. Coloration: Skin is not jaundiced or pale. Findings: No bruising, erythema, lesion or rash. Neurological: General: No focal deficit present. Mental Status: She is alert and oriented to person, place, and time. Cranial Nerves: No cranial nerve deficit. Sensory: No sensory deficit. Motor: No weakness. Coordination: Coordination normal. Gait: Gait normal. Psychiatric: Mood and Affect: Mood normal. Behavior: Behavior normal. Thought Content: Thought content normal. Judgment: Judgment normal. Assessment and Plan ASSESSMENT/PLAN: 1. Dysuria - ICD9: 788.1, ICD10: R30.0 X 5 days acute - UA positive for annika esterase and hematuria - Send urine for culture - Begin treatment with Bactrim DS BID for 5 days RX Diflucan Rx Pyridium - Patient education for prevention given - UA DIP, URINE (POC) - URINE CULTURE - SULFAMETHOXAZOLE 800 MG-TRIMETHOPRIM 160 MG TABLET - FLUCONAZOLE 150 MG TABLET Vane Nelson APRN.LEMON PICKER documented in this encounter [facility] Evaluation + Plan note No data available for this section [facility] Evaluation note No assessment inform ation available [facility] Work Phone: Evaluation note Diagnosis Onset Date Thyroid nodule acute [facility] Work Phone: Evaluation note* Diagnosis Dysuria- Primary [facility] Diagnosis Rhinosinusitis- Primary Unspecified sinusitis (chronic) [facility] Diagnosis Right ear pain- Primary Otalgia, unspecified Dizziness Dizziness and giddiness [facility] No data available for this section [facility] Progress note No data available for this section [facility] Chief Complaint and Reason for Visit Chief Complaint NODULE Chief Complaint NODULE R THYROID NODULE MUTLIPLE THYROID NODULES Reason for Visit Thyroid nodule Chief Complaint SCREENING Chief Complaint SCREENING AUB Advance Directives Advance Directive Response Recorded Date/ Time Living Will No October 05 3:28pm Power of Metal Base Blocker No October 05 3:28pm Advance Directive Response Recorded Date/ Time Living Will No October 05 4:28pm Power of Metal Base Blocker No October 05 4:28pm Summary Purpose Family History No Family History Records FoundNo Family History Records FoundNo Family History Records Found No data available for this section No data available for this section Additional Source Comments Care Teams (unrecognized sec tion and content) Team Status: Active Member Role Status Dates Dr. Remington Duckworth MD Family Provider Active Dr. Remington Duckworth MD Primary Care Provider Activ e Team Status: Inactive Member Role Status Dates Dr. Remington Duckworth MD Primary Care Provider, Attending Provider, Referring Provider Active Team Status: Active Member Role Status Dates Dr. Remington Duckworth MD Primary Care Provider, Attending Provider, Referring Provider Active Team Status: Inactive Member Role Status Dates Dr. Remington Duckworth MD Primary Care Provider, Refe rring Provider Active Dr. Hector Brown MD Attending Provider Active Team Status: Inactive Member Role Status Dates Dr. Remington Duckworth MD Primary Care Provider Activ e Dr. Hector Brown MD Attending Provider, Referring P rovider Active Team Status: Inactive Member Role Status Dates Dr. Remington Duckworth MD Primary Care Provider, Atte nding Provider Active Team Status: Inactive Member Role Status Dates Dr. Remington Duckworth MD Primary Care Provider Activ e Dr. Oscar Bauman MD Attending Provider, Referring Pr ovider Active Patch Driller Relationship Specialty Start Date End Date Kane Duckworth MD [address] [place] [address] PCP - General Family Medicine 11/17/19 Patch Driller Relationship Specialty Start Date End Date Kane Duckworth MD [address] [place] [address] PCP - General Family Medicine 11/17/19 Team Status: Active Member Role Status Dates Dr. Remington Duckworth MD Primary Care Provider Activ e Devorah Rivas , [employer] Attending Provider Active Team Status: Inactive Member Role Status Dates Dr. Remington Duckworth MD Primary Care Provider Activ e Devorah Statkeven , [employer]ILD[employer] Attending Provider Active Patch Driller Relationship Specialty Start Date End Date Kane Duckworth MD [address] [place] [address] PCP - General Family Medicine 11/17/19 Patch Driller Relationship Specialty Start Date End Date Kane Duckworth MD [address] [facility] [place] [address] PCP - General Family Medicine 11/17/19 Goals (unrecognized section and content) Goals may be documented in a n alternate sectionGoals may be documented in an alternate sectionGoals may be documented in an alternate sectionGoals may be documented in an alternate sectionGoals may be documented in an alternate sectionGoals may be documented in an alternate sectionGoals may be documented in an alternate sectionGoals may be documented in an alternate section No data available for this section No data available for this section Source Comments (unrecognize d section and content) In the event this informatio n is protected by the Federal Confidentiality of Alcohol and Drug Abuse Patient Records regulations: The Federal rules restrict any use of the information to criminally investigate or prosecute any alcohol or drug abuse patient.[facility] event this information is protected by the Federal Confidentiality of Alcohol and Drug Abuse Patient Records regulations: The Federal rules restrict any use of the information to criminally investigate or prosecute any alcohol or drug abuse patient.[facility] the event this information is protected by the Federal Confidentiality of Alcohol and Drug Abuse Patient Records regulations: The Federal rules restrict any use of the information to criminally investigate or prosecute any alcohol or drug abuse patient.[facility] the event this information is protected by the Federal Confidentiality of Alcohol and Drug Abuse Patient Records regulations: The Federal rules restrict any use of the information to criminally investigate or prosecute any alcohol or drug abuse patient.[facility] Reason for Visit (unrecogniz ed section and content) Reason Comments Urinary Problem Burning, itching x 5 days Reason Comments Results Reason Comments Cough Cough, congestion, s inus, right ear pain and CAGE x 2 weeks Reason Comments Ear Problem Right ear issues, mu ffled hearing x 2 days INFORMATION SOURCE (unrecogn ized section and content) DATE CREATED AUTHOR [facility]20[facility] DATE CREATED AUTHOR AUTHOR'S ORGANIZ ATION 05/16/2024 [facility] DATE CREATED AUTHOR AUTHOR'S ORGANIZ ATION 07/06/2024 [facility] FOR RECORDS PERTAINING TO PATIENTS WHO ARE OR HAVE BEEN ENROLLED IN A CHEMICAL DEPENDENCY/SUBSTANCEABUSE PROGRAM, SOME INFORMATION MAY BE OMITTED. This clinical summary was aggregated from multiple sources. Caution should be exercised in using it in the provision of clinical care. This summary normalizes information from multiple sources, and as a consequence, information in this document may materially change the coding, format and clinical context of patient data. In addition, data may be omitted in some cases. CLINICAL DECISIONS SHOULD BE BASED ON THE PRIMARY CLINICAL RECORDS. [employer] [facility]. provides no warranty or guarantee of the accuracy or completeness of information in this document.
== END | disposition home or self-care (01) ==
LOC: MFPLAB 14:01 → LABSPEC 14:02
PROVIDERS: PCP Family Medicine; Visit Provider Family Medicine
DX: D22.5 Melanocytic nevi of trunk (principal)
CPT/HCPCS: 88305; 88341; 88342